=== PATIENT | female | born 1970 | race Caucasian/White ===

== ENCOUNTER 2019-05-29 09:52 | Emergency (ER) | payer OTHER ==
[~2019-05-29] VITALS: Ht 162.6 cm; Wt 86.2 kg
[2019-05-29 10:04] VITALS: BP 175/78
--- NOTE | 2019-05-29 10:08 | NUR ---
pt bib for ward check. pt states she got the indwelling ward 1 week ago d/t possible nueropathy of the bladder. pt states she waiting on a referral to see a bladder specalist to determine if ward still needs to be in or removed. ward is intact and no signs of blood in urine. pt denies any discomfort. denies any n,v,fever, or flank pains. pmh:htn, asthma, mi (2016), kidney fialure, heart disease. nka.
--- NOTE | 2019-05-29 10:09 | NUR ---
lung sounds clear, heart sounds s1s2 present. no resp distress or nay distress noted. no swelling noted.
--- NOTE | 2019-05-29 10:12 | NUR ---
Patient ambulated to bed 1. RN evaluating patient at bedside.
--- NOTE | 2019-05-29 10:49 | NUR ---
ward cath removed per md order. md instructed pt to walk around to stimlulate bladder before d/c
--- NOTE | 2019-05-29 11:14 | NUR ---
Dr. Mccall is re-evaluating the patient at bedside.
--- NOTE | 2019-05-29 11:40 | NUR ---
Patient discharged with v/s stable. Written and verbal after care instructions given and explained. Patient verbalized understanding. Ambulatory with steady gait. All questions addressed prior to discharge. Advised to follow up with PMD.
== END 2019-05-29 11:30 | disposition home or self-care (01) ==
LOC: MED 09:52
DX: R33.9 Retention of urine, unspecified (principal); Z46.6 Encounter for fitting and adjustment of urinary device; J45.909 Unspecified asthma, uncomplicated; I10 Essential (primary) hypertension; Z90.49 Acquired absence of other specified parts of digestive tract; Z98.51 Tubal ligation status; Z95.5 Presence of coronary angioplasty implant and graft
CPT/HCPCS: 99282

== ENCOUNTER 2019-06-07 16:57 | Inpatient (IN) | payer OTHER ==
[~2019-06-07] VITALS: Ht 162.6 cm; Wt 95.3 kg
[2019-06-07 17:07] VITALS: BP 192/98
--- NOTE | 2019-06-07 17:35 | NUR ---
49/F C/O VAGINAL BLEEDING X 2 WEEK GETTING HEAVIER. REPORTS 4 PADS/HR WITH LARGE CLOTS. STATES INT 6/10 SUPRAPUBIC PAIN, DIZZINESS, WEAKNESS, NAUSEA. DENIES FEVER, VOMITING, UTI SYMPTOMS. LMP 05/16/19. GCS15. APPEARS FATIGUED. HX- ANEMIA (2 TRANSFUSIONS), CKD4, CARDIAC STENT, HTN, DM
--- NOTE | 2019-06-07 17:37 | NUR ---
PT STATES UNABLE TO PROVIDE URINE AT THIS TIME. WATER GIVEN TO PT UPON REQUEST.
--- NOTE | 2019-06-07 17:49 | NUR ---
SCHEDULING AGENT AT BEDSIDE.
--- NOTE | 2019-06-07 18:05 | NUR ---
US AT BEDSIDE.
[2019-06-07 18:09] LABS: BASOPHILS % (AUTO) 0.5 % (0.0-2.0); EOSINOPHILS # (AUTO) 0.4 K/uL (0-0.4); EOSINOPHILS % (AUTO) 8.1 % (0.0-4.0); LYMPHOCYTES # (AUTO) 0.9 K/uL (2.5-16.5); LYMPHOCYTES % (AUTO) 18.2 % (20.5-51.1); MEAN CORPUSCULAR HEMOGLOBIN 29 pg (27-31); MEAN CORPUSCULAR HGB CONC 33 g/dL (33-37); MEAN CORPUSCULAR VOLUME 89.8 fL (80-94); MONOCYTES # (AUTO) 0.5 K/uL (0.8-1.0); MONOCYTES % (AUTO) 10.1 % (1.7-9.3); NEUTROPHILS # (AUTO) 3.3 K/uL (1.8-7.7); NEUTROPHILS % (AUTO) 63.1 % (42.2-75.2); PLATELET COUNT (AUTO) 147 K/uL (140-450); RED BLOOD CELL COUNT(AUTO) 2.12 MIL/uL (4.20-5.40); RED CELL DISTRIBUTION WIDTH 14.8 % (11.6-13.7); WHITE BLOOD COUNT (AUTO) 5.2 K/uL (4.8-10.8)
[2019-06-07 18:10] LABS: HEMOGLOBIN 6.2 g/dL (12.0-16.0)
[2019-06-07] MEDS ORDERED: CARV25TA PO (18:40)
[2019-06-07] MEDS ORDERED: DOCU-299 PO (18:40)
[2019-06-07] MEDS ORDERED: FURO-570 PO (18:40)
[2019-06-07] MEDS ORDERED: FERR-252 PO (18:40)
[2019-06-07] MEDS ORDERED: CETI-32 PO (18:40)
[2019-06-07] MEDS ORDERED: SODI650T2 PO (18:40)
[2019-06-07] MEDS ORDERED: ASPI-1718 PO (18:40)
[2019-06-07] MEDS ORDERED: HYDR-1100 PO (18:40)
[2019-06-07] MEDS ORDERED: VITD1000 PO (18:40)
[2019-06-07] MEDS ORDERED: ACET-2619 PO (18:40)
[2019-06-07] MEDS ORDERED: ATOR40TA PO (18:40)
[2019-06-07 18:56] LABS: ALBUMIN 1.9 g/dL (3.4-5.0); ANION GAP 15.6 (8-16); CARBON DIOXIDE 23.8 mmol/L (21-32); POTASSIUM 4.4 mmol/L (3.5-5.1); THYROID STIMULATING HORMONE 3.88 uIU/mL (0.34-3.74); TOTAL BILIRUBIN 0.3 mg/dL (0.0-1.0)
--- NOTE | 2019-06-07 19:20 | NUR ---
Patient will be admitted to care of Dr. Grady. Admited to med surge. Will go to room 104A. Belongings list completed. Report to WALDO Watson.
[2019-06-07 19:23] LABS: CREATININE 5.5 mg/dL (0.6-1.3)
--- NOTE | 2019-06-07 19:37 | NUR ---
RECEIVED FROM ER PER RICO AWAKE AND ALERT. ORIENTED X 4. ROM X 4. CLEAR SPEECH. PT. DX. OF ANEMIA. IVF SITE TO LEFT HAND #20. CARE PLANS FOR THE NIGHT DISCUSSED WITH THEM AND CALL LIGHT USE EXPLAINED AND ENCOURAGED TO USE FOR ANY HELP OR ANY PAIN SHE MIGHT HAVE. PT. DAUGHTER IN HERE ACCOMPANYING PT. SKIN INTACT . /SANDWICH PROVIDED RT VERY HUNGRY PER PT.
[2019-06-07 20:00] VITALS: BP 180/78
--- NOTE | 2019-06-07 20:00 | NUR ---
MD CARRASQUILLO WITH ORDERS PER PHONE. MADE AWARE OF BUN 82 AND CREATININE 5.47 . "OK". NO FURTHER ORDERS RE: THIS VALUES.
--- NOTE | 2019-06-07 20:35 | NUR ---
PT. PRBC TRANSFUSION STARTED AT THIS TIME. NO COMPLAINTS DONE. AWARE OF PROCEDURE. EXPLAINED REASON FOR TRANSFUSION. AWARE. OF IT.
--- NOTE | 2019-06-07 21:00 | NUR ---
MD OSCAR /PROFESSOR OF ASTRONOMY SPECIALIST SEEN PT. AND EXPLAINED TO HER PROCEDURE THE MD WANTS DONE TOMORROW. ALL QUESTIONS RE:DILATATION AND CURETTAGE ANSWERED BY .
[2019-06-07] MEDS ORDERED: FUROSEMIDE 20 MG/2 ML VIAL IVP SCH (22:00)
[2019-06-07] MEDS ORDERED: ACETAMINOPHEN 650 MG/20.3 ML UDC PO PRN (22:35)
--- NOTE | 2019-06-07 23:06 | NUR ---
PT. MEDICATED WITH TYLENOL P.O. REQUESTED FOR HEADACHE/CHRONIC. STATED THAT SHE HAS HEADACHES ALL THE TIME AND TAKES TYLENOL FOR IT.
--- NOTE | 2019-06-07 23:36 | NUR ---
BLOOD TRANSFUSION PRBC ORDERED #1 UNIT DONE AT THIS TIME. NO NOTED SOB. NO URTICARIA. VERBALIZES WELL. CALL LIGHT WITH IN REACH. WAITING FOR THE SECOND UNIT OF PRBC TO ARRIVE ADDED ORDER BY MD OSCAR/ROLAND.
--- NOTE | 2019-06-07 23:49 | NUR ---
PT. REQUESTED FOR MCCRAY CATHETER TO BE INSERTED RT" I AM WEAK TO STAND UP I DON'T WANT BEDPAN" . MD CARRASQUILLO ORDERED "OK TO INSERT MCCRAY CATHETER." PT. HAPPY AND F/C IN PLACE REQUESTED.
[2019-06-08] VITALS: BP 181/83
[2019-06-08] MEDS ORDERED: cloNIDine 0.1 MG TAB ONE (00:31)
[2019-06-08] MEDS: DEXT 5% / NACL 0.45% 1,000 ML IV SCH ×2 (00:32→14:44)
--- NOTE | 2019-06-08 01:13 | NUR ---
PT. SLEEPING AT THIS TIME. CALL LIGHT WITH IN REACH.
--- NOTE | 2019-06-08 02:20 | NUR ---
BLOOD TRANSFUSION #2 OF PRBC NOW INFUSING. PT. AWAKE AND NO COMPLAINTS DONE. MCCRAY CATHETER DRAINING WELL WITH YELLOW URINE. CALL LIGHT WITH IN REACH AT ALL TIMES. IVF SITE NO S/S OF INFILTRATION.
--- NOTE | 2019-06-08 03:03 | NUR ---
NO NOTED ADVERSE REACTIONS TO ON GOING BLOOD TRANSFUSION. SLEEPING WELL. WAKES UP EASILY WHEN TOUCHED OR CALLED BY NAME.
[2019-06-08 03:55] VITALS: BP_SYST 174; BP_SYST 180; BP_DIAS 82; BP_DIAS 84
[2019-06-08] MEDS: cloNIDine 0.1 MG TAB PO PRN ×3 (03:59→23:35)
--- NOTE | 2019-06-08 04:12 | NUR ---
PT. MEDICATED WITH CLONIDINE P.O. ORDERED BY MD CARRASQUILLO FOR SBP ABOVE 170 . PRESENTLY 174/82. SLEEPING WELL. AFEBRILE. WOKE UP EASILY WHEN TOUCHED. NO COMPLAINTS DONE. GOES BACK TO SLEEP EASILY. ABLE TO USE CALL LIGHT FOR HELP.
[2019-06-08] MEDS: hydrALAZINE 25 MG TAB PO SCH ×3 (05:26→17:52)
[2019-06-08] MEDS: CARVEDILOL 12.5 MG TAB PO SCH ×2 (05:27→21:24)
--- NOTE | 2019-06-08 05:32 | NUR ---
PT. BP AT THIS TIME 190/94 AND PULSE AT 72. NO RESTLESSNESS. DENIES ANY PAIN. MEDICATED WITH AM HTN EARLIER . CHARGE NURSE AWARE. TOLERATED WELL. EXPLAINED RESON FOR EARLY MEDICATION. "OK"
--- NOTE | 2019-06-08 05:57 | NUR ---
PT. SLEPT WELL THIS SHIFT. NO COMPLAINTS DONE. HAD 4 FEMALE [employer] [place] WITH ONLY TINGE OF BLOOD SPOTS ON IT. PT. AGREED WITH CALCULATIONS.
--- NOTE | 2019-06-08 06:40 | NUR ---
SBP AT THIS TIME-140/ 72. NO SOB. NO COMPLAINTS OF ANY PAIN AT THIS TIME.
[2019-06-08 06:43] VITALS: BP 140/72
--- NOTE | 2019-06-08 07:15 | NUR ---
RECEIVED BEDSIDE REPORT FROM CUSTOMER SERVICE AGENT NURSE. PT IS AWAKE, IN NO APPARENT ACUTE DISTRESS, ON ROOM AIR, SKIN INTACT. IV SITE IS ON THE L HAND 20 G, CURRENTLY NOT INFUSING ANY FLUID. MCCRAY CATHETER NOTED, DRAINING CLEAR YELLOW URINE. PT NOT C/O PAIN. CALL LIGHT IS WITHIN REACH.
[2019-06-08 08:00] VITALS: BP 158/77
[2019-06-08 08:19] LABS: BASOPHILS % (AUTO) 0.7 % (0.0-2.0); EOSINOPHILS # (AUTO) 0.4 K/uL (0-0.4); EOSINOPHILS % (AUTO) 9.5 % (0.0-4.0); HEMATOCRIT 23.1 % (36-48); HEMOGLOBIN 7.6 g/dL (12.0-16.0); LYMPHOCYTES % (AUTO) 23.4 % (20.5-51.1); MEAN CORPUSCULAR HEMOGLOBIN 29 pg (27-31); MEAN CORPUSCULAR HGB CONC 33 g/dL (33-37); MONOCYTES # (AUTO) 0.5 K/uL (0.8-1.0); MONOCYTES % (AUTO) 11.2 % (1.7-9.3); NEUTROPHILS # (AUTO) 2.3 K/uL (1.8-7.7); NEUTROPHILS % (AUTO) 55.2 % (42.2-75.2); PLATELET COUNT (AUTO) 144 K/uL (140-450); RED CELL DISTRIBUTION WIDTH 14.5 % (11.6-13.7); WHITE BLOOD COUNT (AUTO) 4.2 K/uL (4.8-10.8)
--- NOTE | 2019-06-08 08:37 | NUR ---
PATIENT HAS BEEN SCREENED AND CATEGORIZED MODERATE NUTRITION RISK. PATIENT WILL BE SEEN WITHIN 3-5 DAYS OF ADMISSION. 06/10/19 06/12/[address]
--- NOTE | 2019-06-08 08:43 | NUR ---
PT'S IV INFILTRATED, WILL ATTEMPT TO INSERT A NEW ONE
[2019-06-08 08:49] LABS: ANION GAP 13.4 (8-16); CARBON DIOXIDE 24.8 mmol/L (21-32); POTASSIUM 4.2 mmol/L (3.5-5.1)
[2019-06-08 08:54] LABS: CREATININE 5.4 mg/dL (0.6-1.3)
--- NOTE | 2019-06-08 09:59 | NUR ---
PT WAS SEEN BY DR LIZ REGARDING HER D&C. DR LIZ WANTS TO WAIT UNTIL PT CLEARED BY ADMITTING DOCTOR TO DO THE PROCEDURE DUE TO PT'S COMORBIDITIES. DR LIZ WOULD LIKE TO FIRST SPEAK WITH DR THOMPSON REGARDING THIS. I PROVIDED DR LIZ WITH DR THOMPSON'S PHONE NUMBER. Addendum: 06/08/19 at 1013 by Grisel Bautista RN DR LIZ VERBAL ORDER TO DC MCCRAY CATHETER, REDUCE D5NS DRIP RATE TO 50 ML/HR, RENAL DIET, AND NPO AFTER MIDNIGHT TONIGHT FOR D&C TOMORROW AROUND LUNCH TIME. WILL NOTIFY DR THOMPSON WHEN HE IS ROUNDING.
--- NOTE | 2019-06-08 10:25 | NUR ---
INSERTED NEW IV, R FA 22 G, PATENT AND INTACT.
--- NOTE | 2019-06-08 10:31 | NUR ---
DC PLANNIN49 Y/O FEMALE FROM HOME ADMITTED YESTERDAY DUE TO 2 WEEKS HISTORY OF VAGINAL BLEEDING. PAST MEDICAL HISTORY OF CKD, DM, HEART DISEAS WITH 5 STENTS. WITH DIAGNOSIS OF ANEMIA. H/H 6.2/19.0 ON ADMISSION AND 2 UNITS OF PRBC GIVEN, LATEST H/H 7.6/23.1. OB GYNE CONSULT WITH DR. OSCAR, SCHEDULED FOR D&C TODAY. DC PLAN IS PENDING ON PATIENT'S RESPONSE TO TREATMENT.
--- NOTE | 2019-06-08 10:31 | NUR ---
MCCRAY CATHETER DC'D PER DR OSCAR'S ORDER.
[2019-06-08] MEDS ORDERED: DEXTROSE 50% 50 ML SYR IVP PRN (11:50)
[2019-06-08] MEDS ORDERED: INSULIN LISPRO SLIDING SCALE 100 UNITS/ML VIAL SUBQ PRN (11:50)
[2019-06-08] MEDS: FERROUS SULFATE 325 MG TABEC PO SCH ×2 (12:41→17:53)
--- NOTE | 2019-06-08 14:17 | NUR ---
PCP appointment: KENRICK scheduled hospital follow up appointment with Dr. Vickey Loving for 2:00PM @ 06/15/2019. Appointment slip was left in medical chart to be given at discharge. No further needs identified.
--- NOTE | 2019-06-08 14:50 | NUR ---
It Communications Specialist Note: Basic Screen: Yes High Risk DC Screen Yes Name: ALEXSANDER Escobar Relationship: Pre-Admission Living Arrangements: Lives with Other Prior ADL Independent Current Home Health Name/Tel: N/A Current DME/02 Name/Tel: N/A Current Hospice Name/Tel: N/A Current Dialysis Name/Tel: N/A Healthcare Decision Maker: Patient Advance Directive No - REFUSED Physician Orders for Life Sustaining Treatment Form No Patient/Family Have Educational Needs No Information Taught: Advance Directive Community Resources Person Taught: Patient Teaching Tools: Community Resources Verbal Factors Affecting Learning: None Participation Level: Active Evaluation: Verbalizes Understanding Discipline: Case Mgt/Social Svcs Tentative Discharge Plan/Destination: No Needs Identified Will require assistance post discharge: No Referred to Lens Polisher Hand: No Tentative Discharge Plan Summary: Patient is a 49 year old female admitted for anemia. Patient is admitted from home. Patient has past medical hx of chronic kidney disease, hypertension, diabetes, CAD, and s/p stents. SW verified demographics with patient. Patient stated that her PCP is through [facility]. Patient stated her last appointment was 2 months ago. Patient requested to add emergency contact contact information for daughter Wen Song [phone]. Patient reports mental health history of bipolar disorder, depression, anxiety, and panic attacks. Patient stated she is not medication compliant. SW offered mental health resources and if patient was interested in therapy. KENRICK contacted Sommer from [facility] and scheduled an appointment for 06/13/2019 @ 8:00AM at [address] [place] [address]. Patient reports no substance abuse history. Patient verbalized appreciation. Patient's tentative plan after discharge is to return home. No further needs identified. Signature: PHILLIP Bridges Date: Jun 08, 2019 Time: 14:47
[2019-06-08 16:00] VITALS: BP 196/97
[2019-06-08] MEDS ORDERED: BLOOD GLUCOSE MONITORING 1 DEV DEV FS SCH (16:30)
--- NOTE | 2019-06-08 18:59 | NUR ---
PT'S BP IS 187/83 AT THIS TIME, WILL ADMINISTER PRN CLONIDINE
--- NOTE | 2019-06-08 19:10 | NUR ---
PRN CLONIDINE ADMINISTERED, DIRECTOR OF HOUSING AND ENERGY SERVICES NURSE AWARE AND WILL REASSESS BP.
--- NOTE | 2019-06-08 19:30 | NUR ---
PT ENDORSED TO APPLICATION DBA NURSE IN STABLE CONDITION
--- NOTE | 2019-06-08 19:30 | NUR ---
RECEIVED BEDSIDE REPORT FROM AM SHIFT RN SAMANTHA, FOR PT'S CONTINUITY OF CARE. PT IS AAOX4, FAMILY MEMBER AT BEDSIDE, IS ON ROOM AIR, HAS RIGHT FA 22G WITH D5 1/2 NS AT 50 ML/HR, DENIES ANY PAIN AT THIS TIME. EXPLAINED TO PT THE FORGESMITH ROUTINE, PT AND FAMILY MEMBER VERBALIZED UNDERSTANDING. SAFETY MEASURES IN PLACE. CALL LIGHT IS WITHIN REACH. WILL MONITOR PT THROUGHOUT SHIFT.
--- NOTE | 2019-06-08 21:24 | NUR ---
ADMINISTERED SCHEDULED PO MEDICATION ORDERED. VS REASSESSED AND CHARTED. PT TEACHING GIVEN REGARDING HTN AND MEDICATION. IV SITE INFILTRATED. NEW IV SITE ON LEFT WRIST 22G. WILL CONTINUE TO MONITOR PT.
--- NOTE | 2019-06-08 23:35 | NUR ---
VS CHECKED AND CHARTED. ADMINISTERED PRN BP MEDICATION ORDERED. PT TOLERATED IT WELL. PT TEACHING GIVEN ABOUT MEDICATION AND PRINTED CIRCUIT BOARDS STRIPPER ETCHER MAINTENANCE, PT VERBALIZED UNDERSTANDING. WILL CONTINUE TO MONITOR PT.
--- NOTE | 2019-06-08 23:37 | NUR ---
PT'S VS CHECKED AND CHARTED. BP ABOVE 170. ADMINISTERED PRN PO BP MEDS. WILL REASSESS AT 0105.
[2019-06-09] VITALS (17 sets, daily range): BP systolic 141–195; BP diastolic 76–99
[2019-06-09] MEDS: cloNIDine 0.1 MG TAB PO PRN ×3 (03:51→17:57)
--- NOTE | 2019-06-09 03:51 | NUR ---
VS RECHECKED, BP 185/74. ADMINISTERED PRN BP MEDICATION ORDERED. ASSISTED PT TO THE RESTROOM, PT TOLERATED ACTIVITY WELL. WILL CONTINUE TO MONITOR PT.
--- NOTE | 2019-06-09 05:21 | NUR ---
REASSESSED BP - 193/82. WILL NOTIFY MD FOR THE BP STATUS.
[2019-06-09] MEDS: DEXT 5% / NACL 0.45% 1,000 ML IV SCH ×2 (05:45→18:06)
--- NOTE | 2019-06-09 06:30 | NUR ---
PAGED DR. THOMPSON TO REPORT BP PROGRESS. AWAITING FOR MD'S CALL
--- NOTE | 2019-06-09 06:35 | NUR ---
PT LYING DOWN ASLEEP WITH NO SIGNS OF DISTRESS. WILL ENDORSE TO AM SHIFT RN FOR PT'S CONTINUITY OF CARE.
[2019-06-09 06:39] LABS: BASOPHILS % (AUTO) 0.4 % (0.0-2.0); EOSINOPHILS # (AUTO) 0.4 K/uL (0-0.4); EOSINOPHILS % (AUTO) 8.7 % (0.0-4.0); HEMATOCRIT 22.8 % (36-48); HEMOGLOBIN 7.6 g/dL (12.0-16.0); LYMPHOCYTES # (AUTO) 1.1 K/uL (2.5-16.5); LYMPHOCYTES % (AUTO) 22.9 % (20.5-51.1); MEAN CORPUSCULAR HEMOGLOBIN 30 pg (27-31); MEAN CORPUSCULAR HGB CONC 33 g/dL (33-37); MEAN CORPUSCULAR VOLUME 88.7 fL (80-94); MONOCYTES # (AUTO) 0.5 K/uL (0.8-1.0); MONOCYTES % (AUTO) 9.9 % (1.7-9.3); NEUTROPHILS # (AUTO) 2.8 K/uL (1.8-7.7); NEUTROPHILS % (AUTO) 58.1 % (42.2-75.2); PLATELET COUNT (AUTO) 154 K/uL (140-450); RED BLOOD CELL COUNT(AUTO) 2.58 MIL/uL (4.20-5.40); RED CELL DISTRIBUTION WIDTH 14.7 % (11.6-13.7); WHITE BLOOD COUNT (AUTO) 4.8 K/uL (4.8-10.8)
[2019-06-09 07:23] LABS: ALBUMIN 1.7 g/dL (3.4-5.0); ANION GAP 15.3 (8-16); POTASSIUM 4.3 mmol/L (3.5-5.1); TOTAL BILIRUBIN 0.4 mg/dL (0.0-1.0)
--- NOTE | 2019-06-09 07:25 | NUR ---
RECEIVED BEDSIDE REPORT FROM RESIN MAKER RN FOR PT'S CONTINUITY OF CARE. PT IS AAOX4, ON ROOM AIR, HAS RIGHT FA 22G WITH D5 1/2 NS AT 50 ML/HR, DENIES ANY PAIN AT THIS TIME. PT SKIN IS INTACT. EXPLAINED POC TO PT AND PT VERBALIZED UNDERSTANDING. SAFETY MEASURES IN PLACE. CALL LIGHT IS WITHIN REACH. WILL MONITOR PT THROUGHOUT SHIFT.
[2019-06-09 07:48] LABS: CREATININE 5.6 mg/dL (0.6-1.3)
--- NOTE | 2019-06-09 08:21 | NUR ---
PAGED TO NOTIFY OF PT'S BP BEING 189/82. HR-72. PT ASYMPTOMATIC ANS STABLE. DENIES DISTRESS, PAIN SOB AT THIS TIME. WILL CONTINUE TO ROUND FREQUENTLY ON PT. BED IN LOW POSITION, CALL LIGHT WITHIN REACH. AWAITING 'S CALL BACK.
[2019-06-09] MEDS ORDERED: FUROSEMIDE 40 MG TAB PO SCH ×2 (09:00→12:20)
[2019-06-09] MEDS: FERROUS SULFATE 325 MG TABEC PO SCH ×3 (10:24→16:54)
[2019-06-09] MEDS: hydrALAZINE 25 MG TAB PO SCH ×3 (10:25→16:53)
[2019-06-09] MEDS: CARVEDILOL 12.5 MG TAB PO SCH ×2 (10:25→20:09)
--- NOTE | 2019-06-09 10:31 | NUR ---
ADMINISTERED PT MORNING MEDS. PT TOLERATED WELL. ALL BP MEDS SCHEDULED WERE GIVEN TO PT. PT TOLERATED WELL. WILL BEGIN BLOOD TRANSFUSION WHEN READY. BED IN LOW POSITION, CALL LIGHT WITHIN REACH.
[2019-06-09] MEDS ORDERED: amLODIPine 5 MG TAB PO SCH (11:31)
--- NOTE | 2019-06-09 11:49 | NUR ---
PT BLOOD TRANSFUSION WAS STARTED. PT TOLERATING WELL. MADE PT AWARE OF S/S TO LOOK FOR SUCH RASH, ITCHING, CHILLS, LOWER BACK PAIN, SUDDEN SOB. PT VERBALIZED UNDERSTANDING. WILL STAY WITH PT FOR 30MINS. PT BP STILL ELEVATED AT 181/80 AND HR-72. DR. THOMPSON WALKED IN, SAW PT BP AND AGREED WITH NEW ORDER BY DR. MARTINEZ FOR [facility]. WILL GIVE NEW SCHEDULED BP MEDS TO PT. PT IN STABLE CONDITION AT THIS TIME.
[2019-06-09 11:52] LABS: PROTHROMBIN TIME 10.6 secs (10.8-13.4)
--- NOTE | 2019-06-09 12:35 | NUR ---
PT TAKEN TO OR FOR DNC. PT BLOOD TRANSFUSION RUNNING. NO COMPLAINTS OF NEW SYMPTOMS AT THIS TIME. OR NURSE JENY TO CONTINUE BLOOD TRANSFUSION. PT LEFT IN STABLE CONDITION WITH ELEVATED BP AT 189/81.
[2019-06-09] MEDS ORDERED: LIDOCAINE 2% 100 MG/5 ML SYR IVP ONE (12:58)
[2019-06-09] MEDS ORDERED: SEVOFLURANE 250 ML BTL INH ONE (12:58)
[2019-06-09] MEDS ORDERED: PROPOFOL 200 MG/20 ML VIAL IV ONE (12:58)
[2019-06-09] MEDS ORDERED: MIDAZOLAM 2 MG/2 ML VIAL ONE (13:10)
[2019-06-09] MEDS ORDERED: ONDANSETRON 4 MG/2 ML VIAL IVP PRN (13:30)
[2019-06-09] MEDS ORDERED: BLOOD GLUCOSE MONITORING 1 DEV DEV FS SCH (13:30)
[2019-06-09] MEDS ORDERED: HYDROmorphone 1 MG/ML AMP IVP PRN (13:30)
[2019-06-09] MEDS: LABETALOL 100 MG/20 ML VIAL ONE ×2 (14:02→14:23)
[2019-06-09] MEDS ORDERED: LABETALOL 100 MG/20 ML VIAL IV ONE (14:02)
--- NOTE | 2019-06-09 15:17 | NUR ---
RECEIVED FROM ER IN BED . PT IS AWAKE AND ALERT FOLLOW THE COMMAND. SHE IS ON ROOM AIR SKIN DRY ,COOL TO TOUCH, COLOR PALE. HAS GENERALIZE EDEMA 1 +.LEFT ARM EDEMA . IV FLUID ON RT WRIST INFUSING NS AT 10ML/HR. HER PERINEAL PAD SHOW NO BLEEDING AT THE TIME.
[2019-06-09] MEDS ORDERED: LABETALOL 100 MG/20 ML VIAL IV SCH (15:50)
--- NOTE | 2019-06-09 16:00 | NUR ---
RECEIVED REPORT FROM WALDO ARRIAGA AND OR NURSES. PT ALERT AND ORIENTED X4. ABLE TO MAKE NEEDS KNOWN. IN ROOM AIR SPO2 92%. NO SOB OR ACUTE RESPIRATORY DISTRESS NOTED. BP NOTED WAS 176/93. PT DENIES ANY HEADACHE, DIZZINESS OR PAIN. DENIES ANY NAUSEA OR VOMITING. LUNGS SOUND CLEAR. PERIPHERAL LINE NOTED ON RIGHT WRIST 20 G. IV SITE INTACT. FLUSHED. NS RUNNING AT 10 ML/HR. 20 PERIPHERAL LINE NOTED ON LEFT WRIST. SITE SWOLLEN NOTED. PT C/O PAIN ON THE IV SITE. REMOVED IV CANNULA FROM LEFT WRIST. COVERED WITH DRESSING. KEPT ARM ELEVATED, ICE PACK APPLIED TO THE SITE. ABDOMEN SOFT ROUND AND NON-TENDER. ACTIVE BOWEL SOUND. NO ACTIVE VAGINAL BLEEDING NOTED AT THIS TIME. EDEMATOUS B/L LOWER EXTREMITIES. SKIN DRY AND WARM TO TOUCH, INTACT. HOB ELEVATED. BED IN LOW POSITION LOCKED. WILL CONTINUE TO MONITOR.
--- NOTE | 2019-06-09 16:12 | NUR ---
PT TAKEN TO ICU AFTER DNC DUE TO PERSISTENT HTN. REPORT GIVEN TO MACY FOR CONTINUITY OF CARE.
--- NOTE | 2019-06-09 16:40 | NUR ---
PAGED AND RECEIVED CALL FROM DR. OSCAR. F/U MADE REGARDING PT'S DIET. PER DR. OSCAR, PT CAN HAVE CLEAR LIQUID DIET FOR NOW AND ADVANCED TO RENAL DIET LATER. PER DR. OSCAR, FOR OTHER CONCERN CALL DR. THOMPSON. WILL CARRYOUT ORDER.
--- NOTE | 2019-06-09 17:01 | NUR ---
PT ABLE TO TAKE SOME ICE CHIPS AND SIPS OF WATER. BP 157/91 AT THIS TIME. HYDRALAZINE ADMINISTERED PER SCHEDULE. WILL CONTINUE TO MONITOR BP.
--- NOTE | 2019-06-09 17:05 | NUR ---
CALL DR. MARTINEZ PHONE #[phone]. SPOKE TO WALDO BOLES. LEFT MESSAGE FOR DR. MARTINEZ. MELI SAID HE WILL RELAY THE MESSAGE TO DR. MARTINEZ AND HAVE HIM CALL US.
--- NOTE | 2019-06-09 17:26 | NUR ---
LAB AT THE BEDSIDE.
[2019-06-09 17:32] LABS: BASOPHILS % (AUTO) 0.7 % (0.0-2.0); EOSINOPHILS # (AUTO) 0.4 K/uL (0-0.4); EOSINOPHILS % (AUTO) 8.3 % (0.0-4.0); HEMATOCRIT 31.3 % (36-48); HEMOGLOBIN 10.3 g/dL (12.0-16.0); LYMPHOCYTES # (AUTO) 0.9 K/uL (2.5-16.5); LYMPHOCYTES % (AUTO) 17.6 % (20.5-51.1); MEAN CORPUSCULAR HEMOGLOBIN 30 pg (27-31); MEAN CORPUSCULAR HGB CONC 33 g/dL (33-37); MEAN CORPUSCULAR VOLUME 89.6 fL (80-94); MONOCYTES # (AUTO) 0.4 K/uL (0.8-1.0); MONOCYTES % (AUTO) 8.4 % (1.7-9.3); NEUTROPHILS # (AUTO) 3.5 K/uL (1.8-7.7); PLATELET COUNT (AUTO) 159 K/uL (140-450); RED BLOOD CELL COUNT(AUTO) 3.49 MIL/uL (4.20-5.40); RED CELL DISTRIBUTION WIDTH 14.3 % (11.6-13.7); WHITE BLOOD COUNT (AUTO) 5.3 K/uL (4.8-10.8)
--- NOTE | 2019-06-09 17:34 | NUR ---
PAGEVimal AND RECEIVED CALL FROM DR. THOMPSON. UPDATED PT STATUS. MADE AWARE OF BP, IVF STATUS AND DIET. DR. THOMPSON SAID DC NS AND CONTINUE PREVIOUS IVF D5% 0.45% NS AT 50 ML/HR. FOLLOW HUMALOG SLIDING SCALE PER PROTOCOL AND CONTINUE LIQUID DIET, WILL START DIABETIC DIET FROM TOMORROW. DR. THOMPSON ALSO ORDERED IMDUR 30 MG PO DAILY, FIRST DOSE FOR NOW AND METOPROLOL 5 MG IVP Q6HR PRN. WILL CARRY OUT ORDER. PER DR. THOMPSON, PT CAN BE TRANSFERRED TO TELEMETRY UNIT.
--- NOTE | 2019-06-09 17:44 | NUR ---
PAGED AND RECEIVED CALL FROM DR. MARTINEZ. MADE AWARE OF PT STATUS, BP AND ANTIHYPERTENSIVE MEDS ADD BY DR. THOMPSON. PER DR. MARTINEZ FOLLOW DR. JARQUIN ORDER. NO NEED OF ANY ANTIHYPERTENSIVE DRIP FOR NOW PER DR. MARTINEZ.
[2019-06-09] MEDS ORDERED: METOPROLOL 5 MG/5 ML VIAL IV PRN (17:50)
[2019-06-09] MEDS ORDERED: INSULIN LISPRO SLIDING SCALE 100 UNITS/ML VIAL SUBQ PRN (17:50)
[2019-06-09] MEDS ORDERED: ISOSORBIDE MONONITRATE 30 MG TABER PO SCH (17:56)
--- NOTE | 2019-06-09 19:10 | NUR ---
PT TRANSFERRED TO TELE UNIT ROOM 107B VIA BED ON STABLE CONDITION. BELONGINGS TAKEN WITH PT. REPORT GIVEN TO WALDO SCHMIDT.
--- NOTE | 2019-06-09 19:11 | NUR ---
Received endorsement from CURTAIN FELLER BLINDSTITCH; patient A/Ox4, able to make needs known, Indonesian speaking, on bedrest. Introduced self, updated board. No SOB or distress noted, on room air. IV site noted on right wrist, 20 gauge, running D5 NS 1/2 at 50mL/hr. Patient s/p dilatation and curettage. Bed in the lowest position, call light within reach. Initial assessment done. Will continue to monitor. Addendum: 06/09/19 at 2201 by Mati Paiz RN Vitals upon admission into the unit are as follows: BP 141/87, HR 75 RR 16, Temp 97.9, O2Sat 97% on room air.
--- NOTE | 2019-06-09 20:16 | NUR ---
Dr. Salazar went to see patient; ordered Depo-Provera daily. Carried out.
--- NOTE | 2019-06-09 20:40 | NUR ---
Patient complained of urinary retention; bladder scan was done, patient retaining 466mL of urine. Dr. Oreilly made aware; ordered straight catheter PRN every 6 hours as needed. Order carried out.
--- NOTE | 2019-06-09 21:30 | NUR ---
Due meds given, tolerated well.
--- NOTE | 2019-06-09 23:30 | NUR ---
Vitals taken, no distress noted.
[2019-06-10] VITALS: BP 159/79
--- NOTE | 2019-06-10 01:20 | NUR ---
Checks made; patient asleep, eyes closed, visible chest rise and fall noted. Addendum: 06/10/19 at 0202 by Mati Paiz RN Correct time is 0133, not 0120.
[2019-06-10 04:00] VITALS: BP 164/71
--- NOTE | 2019-06-10 04:05 | NUR ---
Vitals taken, no distress noted. Patient resting comfortably, visible chest rise and fall noted.
--- NOTE | 2019-06-10 06:05 | NUR ---
Vitals stable, due meds given. Will endorse to AM shift RN for continuity of care.
--- NOTE | 2019-06-10 07:10 | NUR ---
RECEIVED BEDSIDE REPORT FROM PLAYGROUND DIRECTOR NURSE, PT IS AWAKE AND ALERT SITTING UP IN BED, NO S/S OF ACUTE DISTRESS, NO SOB. PT IS ON ROOM AIR, SKIN INTACT. IV SITE R WRIST 20 G INFUSING D5 1/2NS 50 ML/HR. BLE PITTING EDEMA +2, AND ANASARCA NOTED. PT'S RELATIVE IS VISITING AT BEDSIDE. FALL PRECAUTIONS IN PLACE. CALL LIGHT WITHIN REACH.
[2019-06-10 07:19] LABS: BASOPHILS % (AUTO) 0.3 % (0.0-2.0); EOSINOPHILS # (AUTO) 0.5 K/uL (0-0.4); EOSINOPHILS % (AUTO) 7.1 % (0.0-4.0); HEMATOCRIT 30.4 % (36-48); HEMOGLOBIN 10.1 g/dL (12.0-16.0); LYMPHOCYTES # (AUTO) 0.9 K/uL (2.5-16.5); LYMPHOCYTES % (AUTO) 12.9 % (20.5-51.1); MEAN CORPUSCULAR HEMOGLOBIN 30 pg (27-31); MEAN CORPUSCULAR HGB CONC 33 g/dL (33-37); MEAN CORPUSCULAR VOLUME 88.6 fL (80-94); MONOCYTES # (AUTO) 0.5 K/uL (0.8-1.0); MONOCYTES % (AUTO) 7.3 % (1.7-9.3); NEUTROPHILS # (AUTO) 5.2 K/uL (1.8-7.7); NEUTROPHILS % (AUTO) 72.4 % (42.2-75.2); PLATELET COUNT (AUTO) 167 K/uL (140-450); RED BLOOD CELL COUNT(AUTO) 3.43 MIL/uL (4.20-5.40); RED CELL DISTRIBUTION WIDTH 14.5 % (11.6-13.7); WHITE BLOOD COUNT (AUTO) 7.1 K/uL (4.8-10.8)
[2019-06-10 07:22] LABS: ALBUMIN 1.7 g/dL (3.4-5.0); CARBON DIOXIDE 24.2 mmol/L (21-32); POTASSIUM 4.2 mmol/L (3.5-5.1); TOTAL BILIRUBIN 0.5 mg/dL (0.0-1.0)
[2019-06-10 07:30] LABS: CREATININE 5.4 mg/dL (0.6-1.3)
[2019-06-10 08:00] VITALS: BP 185/83
[2019-06-10] MEDS: hydrALAZINE 25 MG TAB PO SCH ×2 (08:48→12:05)
[2019-06-10] MEDS: CARVEDILOL 12.5 MG TAB PO SCH (08:50)
[2019-06-10] MEDS: FERROUS SULFATE 325 MG TABEC PO SCH ×2 (08:51→11:04)
--- NOTE | 2019-06-10 08:58 | NUR ---
ADMINISTERED SCHEDULED AM MEDS, PT TOLERATED WELL.
[2019-06-10] MEDS ORDERED: FUROSEMIDE 40 MG TAB PO SCH (09:00)
[2019-06-10] MEDS ORDERED: amLODIPine 5 MG TAB PO SCH (09:00)
[2019-06-10] MEDS ORDERED: ISOSORBIDE MONONITRATE 30 MG TABER PO SCH (09:00)
--- NOTE | 2019-06-10 10:15 | NUR ---
PT WAS ENDORSED TO WALDO DELGADO, FOR CONTINUITY OF CARE.
--- NOTE | 2019-06-10 10:16 | NUR ---
REPORT RECEIVED FROM SAMANTHA RN, PT RESTING QUIETLY IN NO ACUTE DISTRESS, OX4, RESP EVEN UNLABORED, SKIN WARM DRY COLOR WNL, PT UP TO BATHROOM WITH STEADY GAIT, DENIES DIZZINESS, LIGHTHEADED, STATES VOIDING WITHOUT PROBLEM, PT NOW WALKING AROUND THE HALLWAY WILL CONTINUE TO MONTIOR.
[2019-06-10 10:20] VITALS: BP 163/80
--- NOTE | 2019-06-10 10:33 | NUR ---
DR LE AT BEDSIDE.
--- NOTE | 2019-06-10 10:35 | NUR ---
REPEAT BP 163/80, HR 73
[2019-06-10] MEDS ORDERED: AMLO10TA4 PO (10:36)
[2019-06-10] MEDS ORDERED: BISACODYL 10 MG SUPP RC SCH (11:00)
--- NOTE | 2019-06-10 11:25 | NUR ---
PT REPORTS SHE JUST HAD LARGE LOOSE BM, DULCOLAX HELD.
--- NOTE | 2019-06-10 13:00 | NUR ---
CALLED DR LE TO CLARIFY ASPIRIN, PT TO HOLD ASPIRIN FOR ONE WEEK AND RESUME AGAIN, AND START AMLODIPINE TODAY, PT VERBALIZED UNDERSTANDING.
--- NOTE | 2019-06-10 13:10 | NUR ---
IV DC'D, CATH TIP INTACT, BLEEDING CONTROLLED, DC INSTRUCTIONS GIVEN AND EXPLAINED TO PT, APPOINTMENT SLIP AND RX GIVEN TO PT, PT VERBALIZED FULL UNDERSTANDING, PT UP AMBULATING WELL WITH STEADY GAIT, DC HOME NOW WITH FAMILY
== END 2019-06-10 13:10 | disposition home or self-care (01) | DRG 517 ==
LOC: MED 16:57 → MTU 18:30 → MLD 06-09 15:44 → MIC 06-09 15:47 → MTU 06-09 19:04
PROVIDERS: ADMIT Internal Medicine Pulmonary Disease; ATTEND Internal Medicine Pulmonary Disease
PROC: 30233N1 Transfusion of Nonautologous Red Blood Cells into Peripheral Vein, Percutaneous Approach (ICD-10-PCS; principal; 2019-06-07)
PROC: 0UDB7ZZ Extraction of Endometrium, Via Natural or Artificial Opening (ICD-10-PCS; 2019-06-09)
DX: N92.0 Excessive and frequent menstruation with regular cycle (principal); E43 Unspecified severe protein-calorie malnutrition; N18.6 End stage renal disease; I12.0 Hypertensive chronic kidney disease with stage 5 chronic kidney disease or end stage renal disease; E11.22 Type 2 diabetes mellitus with diabetic chronic kidney disease; D62 Acute posthemorrhagic anemia; J45.909 Unspecified asthma, uncomplicated; I25.10 Atherosclerotic heart disease of native coronary artery without angina pectoris; D25.9 Leiomyoma of uterus, unspecified; N83.209 Unspecified ovarian cyst, unspecified side; N93.9 Abnormal uterine and vaginal bleeding, unspecified; I25.2 Old myocardial infarction; N81.4 Uterovaginal prolapse, unspecified; E66.9 Obesity, unspecified; Z95.5 Presence of coronary angioplasty implant and graft; Z79.82 Long term (current) use of aspirin; Z79.899 Other long term (current) drug therapy; Z90.49 Acquired absence of other specified parts of digestive tract; Z95.1 Presence of aortocoronary bypass graft; Z98.51 Tubal ligation status; Z68.36 Body mass index [BMI] 36.0-36.9, adult
CPT/HCPCS: 36415; 36430; 71045; 76830; 80048; 80053; 82948; 84443; 84484; 85025; 85610; 86886; 86900; 86901; 86920; 87081; 88305; 93005; 99285; C1758; J1050; J1940; J2001; J2250; J2704; J3490; J7030; J7120; P9016; Q0092

== ENCOUNTER 2019-07-15 19:06 | Inpatient (IN) | payer OTHER ==
[~2019-07-15] VITALS: Ht 162.6 cm; Wt 93.4 kg
[~2019-07-15 19:06] MED LIST: ACET-2619 PO; AMLO10TA4 PO; ATOR40TA PO; CARV25TA PO; CETI-32 PO; DOCU-299 PO; FERR-252 PO; FURO-570 PO; HYDR-1100 PO; SODI650T2 PO; VITD1000 PO
[2019-07-15 19:19] VITALS: BP 184/82
--- NOTE | 2019-07-15 19:29 | NUR ---
49 Y/O FEMALE C/O SOB X 2HR. LUNG SOUNDS CLEAR ALL THROUGHOUT. PRODUCTIVE COUGH PRESENT. SPO2 100% WITH 2L NC. PT STATES SHE HAS ABD PAIN AND BACK PAIN AND RATES IT 10/10. HEART SOUND S1S2 PRESENT. PITTING EDEMA +3 PRESENT BILAT LOWER EXTREM. VSS. NO SOB PRESENT. NO USE OF ACCESSORY MUSCLE. A & O X4. NKA. PMH: PD DIALYSIS, DM, HTN, ASTHMA, RENAL FAILURE, HEART MURMUR.
--- NOTE | 2019-07-15 19:29 | NUR ---
WHEELCHAIRED TO BED #1
--- NOTE | 2019-07-15 19:29 | NUR ---
ABD IS SOFT, ROUND, ACTIVE BS. PD DIALYSIS ACCESS PORT FOUND ON LUQ.
[2019-07-15] MEDS ORDERED: LEVOFLOXACIN 750 MG/D5W PREMIX 150 ML IV ONE (19:40)
[2019-07-15] MEDS ORDERED: NACL 0.9% 1,000 ML IV ONE (19:40)
[2019-07-15] MEDS ORDERED: ALBUTEROL SULFATE/IPRATROPIU 3 ML SOL IH ONE (19:45)
--- NOTE | 2019-07-15 19:48 | NUR ---
XR AT BEDSIDE.
[2019-07-15] MEDS ORDERED: cefTRIAXone 1,000 MG VIAL ONE (20:06)
[2019-07-15 20:37] LABS: BASOPHILS # (AUTO) 0.1 K/uL (0.00-0.22); BASOPHILS % (AUTO) 1.3 % (0.0-2.0); EOSINOPHILS # (AUTO) 0.3 K/uL (0-0.4); EOSINOPHILS % (AUTO) 3.9 % (0.0-4.0); HEMATOCRIT 27.2 % (36-48); HEMOGLOBIN 8.8 g/dL (12.0-16.0); LYMPHOCYTES # (AUTO) 0.7 K/uL (2.5-16.5); LYMPHOCYTES % (AUTO) 8.6 % (20.5-51.1); MEAN CORPUSCULAR HEMOGLOBIN 29 pg (27-31); MEAN CORPUSCULAR HGB CONC 32 g/dL (33-37); MEAN CORPUSCULAR VOLUME 89.7 fL (80-94); MONOCYTES # (AUTO) 0.4 K/uL (0.8-1.0); MONOCYTES % (AUTO) 4.9 % (1.7-9.3); NEUTROPHILS # (AUTO) 6.7 K/uL (1.8-7.7); NEUTROPHILS % (AUTO) 81.3 % (42.2-75.2); PLATELET COUNT (AUTO) 176 K/uL (140-450); RED BLOOD CELL COUNT(AUTO) 3.03 MIL/uL (4.20-5.40); RED CELL DISTRIBUTION WIDTH 13.8 % (11.6-13.7); WHITE BLOOD COUNT (AUTO) 8.3 K/uL (4.8-10.8)
--- NOTE | 2019-07-15 20:41 | NUR ---
EKG PERFORMED AT BEDSIDE WITH FAMILY MEMBER PRESENT
[2019-07-15 20:59] LABS: ALBUMIN 2.1 g/dL (3.4-5.0); ANION GAP 17.6 (8-16); CARBON DIOXIDE 21.7 mmol/L (21-32); POTASSIUM 4.3 mmol/L (3.5-5.1); TOTAL BILIRUBIN 0.3 mg/dL (0.0-1.0)
[2019-07-15 21:01] LABS: CREATININE 6.4 mg/dL (0.6-1.3)
[2019-07-15] MEDS ORDERED: ACETAMINOPHEN EXTRA STRENGTH 500 MG TAB ONE (21:43)
[2019-07-15] MEDS ORDERED: INSULIN LISPRO SLIDING SCALE 100 UNITS/ML VIAL SUBQ PRN (21:55)
[2019-07-15] MEDS ORDERED: DEXTROSE 50% 50 ML SYR IVP PRN (21:55)
--- NOTE | 2019-07-15 22:03 | NUR ---
400ML URINE VIA STRAIGHT CATH.
--- NOTE | 2019-07-15 22:13 | NUR ---
STRAIGHT CATH PT AND GOT 400CC OF CLEAR YELLOW URINE.
[2019-07-15] MEDS ORDERED: ATOR40TA PO (22:25)
[2019-07-15] MEDS ORDERED: FLONAS NS (22:36)
[2019-07-15] MEDS ORDERED: ACET-8386 PO (22:38)
[2019-07-15] MEDS ORDERED: ONDA4ODT2 PO (22:44)
[2019-07-15 22:48] LABS: APPEARANCE,URINE CLEAR (CLEAR); BILIRUBIN,URINE NEGATIVE (NEGATIVE); BLOOD, URINE 1+ (NEGATIVE); COLOR,URINE YELLOW (YELLOW); LEUKOCYTE ESTERASE ,URINE NEGATIVE (NEGATIVE); NITRITE, URINE NEGATIVE (NEGATIVE); UGLUCOSE 1+ (NEGATIVE)
[2019-07-15] MEDS ORDERED: IMO2 PO (22:48)
[2019-07-15] MEDS ORDERED: AMLO5TAB PO (22:49)
[2019-07-15] MEDS ORDERED: [UNRECOGNIZED DRUG - CODE] PO (22:50)
[2019-07-15] MEDS ORDERED: ROC.25 PO (22:51)
[2019-07-15] MEDS ORDERED: HYDR-4421 PO (22:53)
[2019-07-15] MEDS ORDERED: FISH10005 PO (22:55)
[2019-07-15] MEDS ORDERED: MELA5TAB6 PO (22:55)
[2019-07-15 22:58] LABS: WBC,URINE 0-5 /HPF (0-5)
--- NOTE | 2019-07-15 23:09 | NUR ---
Admited to TELE 119-B Belongings list completed. Report to WALDO LUKE .
--- NOTE | 2019-07-15 23:11 | NUR ---
RECEIVED PT. FROM ER PER RICO AWAKE AND ALERT. DX. OF PNA. NO SOB AT THIS TIME. ON 02 AT 2LPM/NC. ABLE TO COMMUNICATE WELL IN [place] . IVF SITE INTACT AND WITH GOOD BLOOD RETURN. CARE PLANS FOR THE NIGHT DISCUSSED WITH HER AND CALL LIGHT WITH IN REACH. AFEBRILE.
[2019-07-15 23:43] VITALS: BP 175/80
--- NOTE | 2019-07-16 01:10 | NUR ---
SLEEPING AT THIS TIME. PROVIDED WITH SNACK PRIOR GOING TO SLEEP REQUESTED . CALL LIGHT WITH IN REACH.
--- NOTE | 2019-07-16 02:45 | NUR ---
ASSISTED PT. TO RESTROOM AND CHANGED DRESSING OF PERITONEAL DIALYSIS ACCESS IN ABDOMEN. PT. INFORMED HER THAT I WAS ABLE TO TALK TO FIRE CONTROL OFFICER MD [place] TO RE-CONFIRM HEM MARKER CONSULT HE ORDERED. CHARGE NURSE TALKED TO HIM AND RE-CONFIRMED MD HE WANTS FOR CONSULT IS FITZ SNOW. WILL ENDORSE TO AM RN FOR CONTINUITY OF CARE AND FOLLOW UP WITH FITZ NEWMAN.
--- NOTE | 2019-07-16 03:00 | NUR ---
SLEEPING. WAKES UP EASILY WHEN CALLED BY NAME. STATED SHE CAN NOT SLEEP WELL. ENCOURAGED TO RELAX RT PT. NEW DIALYSIS PT.
[2019-07-16 04:00] VITALS: BP 157/75
--- NOTE | 2019-07-16 05:00 | NUR ---
AWAKE . AMBULATED TO RESTROOM AND BALLISTICS EXPERT STANDBY ASSIST. ABLE TO USE CALL LIGHT FOR HELP. A/O X 4. ROM X 4.
--- NOTE | 2019-07-16 07:25 | NUR ---
REPORT RECEIVED FROM REFINERY SUPERINTENDENT NURSE FOR CONTINUITY OF CARE, PD SITE CHECK SCANT LEAKAGE NOTED, SEROUS FLUID. CONSULT FOR CATERING SERVER ORDERED BY MD. PATIENT STATES MILD NAUSEA, PATIENT IN BED, HEP LOCK IV. BED IN LOW POSITION, CALL LIGHT ON AND WITHIN REACH, WILL CONTINUE TO MONITOR.
[2019-07-16] MEDS: BLOOD GLUCOSE MONITORING 1 DEV DEV FS SCH ×4 (07:30→21:00)
--- NOTE | 2019-07-16 07:33 | NUR ---
ENDORSED TO THE AM RN FOR CONTINUITY OF CARE. AWAKE AND ALERT. NO SOB. NO C/O PAIN THIS SHIFT. BLOOD SUGAR WNL FOR THIS A.M. TELEMETRY MONITORING.
[2019-07-16 08:00] VITALS: BP 170/79
[2019-07-16] MEDS ORDERED: INFLUENZA VACCINE QUAD 0.5 ML SYR IMVAC PRN (09:00)
[2019-07-16] MEDS ORDERED: PNEUMOCOCCAL VACCINE 23 MCG/0.5 ML VIAL IMVAC SCH (09:00)
--- NOTE | 2019-07-16 09:00 | NUR ---
PAGE SENT TO DR. POE TO RECONCILE HOME MEDS, PATIENT HAS NO MEDS ORDERED AT THIS TIME AND HAS SCHEDULED BP MEDS DUE IN MORNING PER PATIENTS HOME MED RECONCILIATION.
--- NOTE | 2019-07-16 09:45 | NUR ---
RECEIVED CALL FROM DR. POE TO CONTINUE HOME MEDS, MEDICATION ORDER PLACED. PATIENT COMPLAINING OF LEAKAGE AT PERITONEAL DIALYSIS SITE. DRESSING IS DAMP. WILL CONTINUE TO MONITOR.
[2019-07-16] MEDS ORDERED: ONDANSETRON 4 MG ODT PO PRN (10:05)
[2019-07-16] MEDS ORDERED: LOPERAMIDE 2 MG CAP PO PRN (10:05)
[2019-07-16] MEDS ORDERED: HYDROcodone/APAP 5/325 MG 1 TAB TAB PO SCH (10:05)
[2019-07-16] MEDS ORDERED: ACETAMINOPHEN 325 MG TAB PO PRN (10:05)
[2019-07-16 12:00] VITALS: BP 175/79
[2019-07-16 12:18] LABS: BASOPHILS % (AUTO) 0.4 % (0.0-2.0); EOSINOPHILS # (AUTO) 0.1 K/uL (0-0.4); EOSINOPHILS % (AUTO) 2.8 % (0.0-4.0); LYMPHOCYTES # (AUTO) 0.5 K/uL (2.5-16.5); LYMPHOCYTES % (AUTO) 9.9 % (20.5-51.1); MEAN CORPUSCULAR HEMOGLOBIN 30 pg (27-31); MEAN CORPUSCULAR HGB CONC 33 g/dL (33-37); MEAN CORPUSCULAR VOLUME 88.7 fL (80-94); MONOCYTES # (AUTO) 0.5 K/uL (0.8-1.0); MONOCYTES % (AUTO) 10.5 % (1.7-9.3); NEUTROPHILS # (AUTO) 3.7 K/uL (1.8-7.7); NEUTROPHILS % (AUTO) 76.4 % (42.2-75.2); PLATELET COUNT (AUTO) 129 K/uL (140-450); RED BLOOD CELL COUNT(AUTO) 2.71 MIL/uL (4.20-5.40); RED CELL DISTRIBUTION WIDTH 13.6 % (11.6-13.7); WHITE BLOOD COUNT (AUTO) 4.9 K/uL (4.8-10.8)
[2019-07-16 12:41] LABS: ANION GAP 16.6 (8-16); CARBON DIOXIDE 20.4 mmol/L (21-32)
--- NOTE | 2019-07-16 12:53 | NUR ---
RECEIVED CALL FROM PHARMACY REGARDING CRITICAL LAB VALUES, REPORTED TO DR. POE. BUN:75, CREATININE:6.3
[2019-07-16 12:57] LABS: CREATININE 6.3 mg/dL (0.6-1.3)
[2019-07-16] MEDS: SODIUM BICARBONATE 650 MG TAB PO SCH ×2 (13:00→17:36)
[2019-07-16] MEDS ORDERED: hydrALAZINE 20 MG/ML VIAL IVP PRN (13:05)
[2019-07-16] MEDS ORDERED: ALBUTEROL SULFATE/IPRATROPIU 3 ML SOL IH PRN (13:30)
--- NOTE | 2019-07-16 13:52 | NUR ---
Disease Case Manager Note: Basic Screen: Yes High Risk DC Screen [place]: ARLET SONG Home Relationship: DAUGHTER Pre-Admission Living Arrangements: Lives with Other Other: LIVES WITH DAUGHTERS Prior ADL Independent Current Home Health Name/Tel: N/A Current DME/02 Name/Tel: N/A Current Hospice Name/Tel: N/A Current Dialysis Name/Tel: [facility] Healthcare Decision Maker: Patient Advance Directive No - REFUSED Patient/Family Have Educational Needs No Information Taught: Advance Directive Person Taught: Patient Teaching Tools: Verbal Factors Affecting Learning: None Participation Level: Refused Evaluation: Verbalizes Understanding Needs Additional Education: No Discipline: Case Mgt/Social Svcs Tentative Discharge Plan/Destination: No Needs Identified Will require assistance post discharge: No Referred to Packaging Designer: No Tentative Discharge Plan Summary: Patient is a 49-year-old female admitted for right lobe pneumonia. Patient has PMHX of chronic renal failure from diabetic nephropathy, hypertension, 4 heart stents, and asthma. Patient was admitted from home. SW met patient at bedside to verify demographics. Patient requested to change emergency contact from Aldo Soto [phone] to daughter Arlet Song [phone]. Patient reports mental health history of bipolar disorder and anxiety. Patient stated she discontinued seeing her psychiatrist since her insurance has changed and intends to see an in-network psychiatrist. SW offered mental health resources but patient refused. SW provided education on advanced directive, but patient also refused. Patient's tentative discharge plan is to return home. No further needs identified. Signature: PHILLIP Bridges Date: Jul 16, 2019 Time: 13:52
--- NOTE | 2019-07-16 14:13 | NUR ---
PT INSTRUCTED ON SPUTUM SAMPLE CUP AT BEDSIDE
--- NOTE | 2019-07-16 15:30 | NUR ---
PATIENT IS RESTING IN BED, [facility] NURSE TO COME LATER TONIGHT FOR PERITONEAL DIALYSIS. MEDICATIONS ADMINISTERED FOR PAIN. PATIENT COMPLAINS OF GENERALIZED DISCOMFORT AND FRUSTRATION WITH NOT HAVING MEDICATIONS. BED IN LOW POSITION. WILL CONTINUE TO MONITOR.
[2019-07-16 16:00] VITALS: BP 156/75
[2019-07-16] MEDS: hydrALAZINE 25 MG TAB PO SCH (17:36)
--- NOTE | 2019-07-16 18:00 | NUR ---
PATIENT IS RESTING IN BED, [facility] NURSE CAME BY AND STATED THAT SHE IS NOT GOING TO PERFORM PERITONEAL DIALYSIS DUE TO RECENTLY CREATED PERITONEAL DIALYSIS, BUT STATED THAT COLLAR WORKER DOCTOR WILL BE COMING TONIGHT.
[2019-07-16] MEDS: BUDESONIDE 0.5 MG/2 ML NEBU INH SCH (19:19)
[2019-07-16] MEDS: ALBUTEROL SULFATE/IPRATROPIU 3 ML SOL IH SCH (19:19)
--- NOTE | 2019-07-16 19:34 | NUR ---
RECEIVED PATIENT ON ROOM AIR, PULSE OX SAT 94%. SCHEDULED BREATHING TREATMENTS ADMINISTERED. TOLERATED TX WELL WITHOUT ADVERSE SIDE EFFECTS. PER MD, PLACE PATIENT ON OXYGEN TO AVOID OVER-EXERTION. PLACED ON 2L NC. NO ACUTE RESPIRATORY DISTRESS NOTED AT THIS TIME. WILL CONTINUE TO MONITOR.
[2019-07-16] MEDS ORDERED: FUROSEMIDE 100 MG/10 ML VIAL ONE ×2 (19:39→19:40)
[2019-07-16 19:45] VITALS: BP 190/89
--- NOTE | 2019-07-16 20:01 | NUR ---
MD VERDUGO TRACK MAINTAINER IN HERE TO SEE PT. AND WITH NEW ORDERS TO INSERT MCCRAY CATHETER AND LASIX IVP 60 MG STAT. PT. ABLE TO VERBALIZE NEEDS WELL. NO SOB RT WITH 02 AT 2 LPM/NC IN PLACE PER MD VERDUGO. CALL LIGHT WITH IN REACH. TELEMETRY MONITORING. ENCOURAGED TO CALL FOR ANY HELP SHE MAY NEED. CARE PLANS FOR THE NIGHT DISCUSSED WITH HER. MCCRAY CATHETER INSERTED BY CHARGE NURSE WITH POSITIVE URINE OUT FLOW TO MCCRAY CATHETER BAG.
[2019-07-16] MEDS: CARVEDILOL 12.5 MG TAB PO SCH (20:17)
[2019-07-16] MEDS ORDERED: FUROSEMIDE 40 MG TAB PO SCH (21:00)
[2019-07-16] MEDS ORDERED: ATORVASTATIN 20 MG TAB PO SCH (21:00)
[2019-07-16] MEDS ORDERED: MELATONIN 3 MG TAB PO SCH (21:00)
[2019-07-17] VITALS: BP 168/80
[2019-07-17] MEDS ORDERED: ONDANSETRON 4 MG/2 ML VIAL IVP PRN (00:45)
[2019-07-17] MEDS: ALBUTEROL SULFATE/IPRATROPIU 3 ML SOL IH SCH ×3 (01:03→13:53)
--- NOTE | 2019-07-17 01:12 | NUR ---
PT. REQUESTED FOR NAUSEA AND ANTI VOMITING IVP MEDICATION . BEEN VOMITING AND HAVING NAUSEA FEELING. A/O X 4. Lashaun BHANDARI ORDERED IVP . PT. TRYING TO GO TO SLEEP NOW AT THIS TIME. ZOFRAN IVP ADMINISTERED REQUESTED BY PT.
--- NOTE | 2019-07-17 01:13 | NUR ---
PATIENT ON 2L NC, PULSE OX SAT 97%. SCHEDULED BREATHING TREATMENT ADMINISTERED TOLERATED TX WELL WITHOUT ADVERSE SIDE EFFECTS. NO ACUTE RESPIRATORY DISTRESS NOTED AT THIS TIME. WILL CONTINUE TO MONITOR.
[2019-07-17 04:08] VITALS: BP 170/75
[2019-07-17] MEDS: BLOOD GLUCOSE MONITORING 1 DEV DEV FS SCH ×3 (05:20→16:30)
--- NOTE | 2019-07-17 05:27 | NUR ---
PT. SLEPT WELL POST ANTI NAUSEA MEDICATION. WOKE UP AT THIS TIME RT PERSONAL HYGIENE RENDERED. MEDICATED WITH NORCO RT COMPLAINT OF HEADACHE. ABLE TO GO BACK TO SLEEP.
[2019-07-17] MEDS: BUDESONIDE 0.5 MG/2 ML NEBU INH SCH (06:35)
[2019-07-17 06:52] LABS: ANION GAP 16.5 (8-16); CARBON DIOXIDE 20.6 mmol/L (21-32); POTASSIUM 4.1 mmol/L (3.5-5.1)
[2019-07-17 06:55] LABS: MAGNESIUM 1.6 mg/dL (1.8-2.4); PHOSPHORUS 6.2 mg/dL (2.5-4.9)
[2019-07-17 06:59] LABS: BASOPHILS % (AUTO) 0.5 % (0.0-2.0); EOSINOPHILS # (AUTO) 0.1 K/uL (0-0.4); EOSINOPHILS % (AUTO) 1.5 % (0.0-4.0); HEMATOCRIT 22.1 % (36-48); HEMOGLOBIN 7.5 g/dL (12.0-16.0); LYMPHOCYTES # (AUTO) 0.8 K/uL (2.5-16.5); LYMPHOCYTES % (AUTO) 17.4 % (20.5-51.1); MEAN CORPUSCULAR HEMOGLOBIN 30 pg (27-31); MEAN CORPUSCULAR HGB CONC 34 g/dL (33-37); MEAN CORPUSCULAR VOLUME 88.6 fL (80-94); MONOCYTES # (AUTO) 0.6 K/uL (0.8-1.0); MONOCYTES % (AUTO) 13.1 % (1.7-9.3); NEUTROPHILS # (AUTO) 3.1 K/uL (1.8-7.7); NEUTROPHILS % (AUTO) 67.5 % (42.2-75.2); PLATELET COUNT (AUTO) 125 K/uL (140-450); RED BLOOD CELL COUNT(AUTO) 2.49 MIL/uL (4.20-5.40); RED CELL DISTRIBUTION WIDTH 13.5 % (11.6-13.7); WHITE BLOOD COUNT (AUTO) 4.6 K/uL (4.8-10.8)
--- NOTE | 2019-07-17 07:16 | NUR ---
REPORT RECEIVED FROM JOWL TRIMMER NURSE FOR CONTINUITY OF CARE. PATIENT IS SLEEPING IN BED. CALL LIGHT ON AND WITHIN REACH . WILL CONTINUE TO MONITOR.
[2019-07-17 07:18] LABS: CREATININE 6.6 mg/dL (0.6-1.3)
[2019-07-17 08:00] VITALS: BP 161/55
--- NOTE | 2019-07-17 08:30 | NUR ---
PATIENT HAS BEEN SCREENED AND CATEGORIZED MODERATE NUTRITION RISK. PATIENT WILL BE SEEN WITHIN 3-5 DAYS OF ADMISSION. 07/18/19 07/20/[address]
[2019-07-17] MEDS ORDERED: FUROSEMIDE 40 MG/4 ML VIAL IVP SCH ×2 (08:49→13:00)
[2019-07-17] MEDS ORDERED: hydrALAZINE 25 MG TAB ONE (08:57)
[2019-07-17] MEDS ORDERED: ATORVASTATIN 20 MG TAB PO SCH (09:00)
[2019-07-17] MEDS ORDERED: FERROUS SULFATE 325 MG TABEC PO SCH (09:00)
[2019-07-17] MEDS ORDERED: LORATADINE 10 MG TAB PO SCH (09:00)
[2019-07-17] MEDS ORDERED: CALCITRIOL 0.25 MCG CAPLF PO SCH (09:00)
[2019-07-17] MEDS ORDERED: CHOLECALCIFEROL 1,000 IU TAB PO SCH (09:00)
[2019-07-17] MEDS ORDERED: FLUTICASONE NASAL 50 MCG/ACTUATION 16 GM BTL NS SCH (09:00)
[2019-07-17] MEDS ORDERED: DOCUSATE SODIUM 100 MG GELCAP PO SCH (09:00)
[2019-07-17] MEDS: hydrALAZINE 25 MG TAB PO SCH ×3 (09:00→17:33)
[2019-07-17] MEDS ORDERED: FUROSEMIDE 100 MG/10 ML VIAL IV SCH (09:00)
[2019-07-17] MEDS ORDERED: amLODIPine 5 MG TAB PO SCH ×2 (09:00)
[2019-07-17] MEDS: SODIUM BICARBONATE 650 MG TAB PO SCH ×3 (09:02→17:33)
[2019-07-17] MEDS: CARVEDILOL 12.5 MG TAB PO SCH (09:17)
[2019-07-17 12:00] VITALS: BP 155/75
[2019-07-17] MEDS ORDERED: EPOETIN ALFA 10,000 UNITS/ML VIAL IV SCH (13:30)
[2019-07-17] MEDS ORDERED: LEVO750T2 PO (14:54)
[2019-07-17 16:00] VITALS: BP 146/61
[2019-07-17 17:55] VITALS: BP 146/65
[2019-07-17] MEDS ORDERED: LEVOFLOXACIN 250 MG/D5 PREMIX 50 ML IV SCH (21:00)
== END 2019-07-17 18:30 | disposition home or self-care (01) | DRG 133 ==
LOC: MED 19:06 → MTU 21:52
PROVIDERS: ADMIT Internal Medicine Pulmonary Disease; ATTEND Internal Medicine Pulmonary Disease
DX: J96.01 Acute respiratory failure with hypoxia (principal); J18.0 Bronchopneumonia, unspecified organism; E11.21 Type 2 diabetes mellitus with diabetic nephropathy; I12.0 Hypertensive chronic kidney disease with stage 5 chronic kidney disease or end stage renal disease; J18.9 Pneumonia, unspecified organism; N18.6 End stage renal disease; D64.9 Anemia, unspecified; E78.5 Hyperlipidemia, unspecified; I25.10 Atherosclerotic heart disease of native coronary artery without angina pectoris; J45.909 Unspecified asthma, uncomplicated; G47.00 Insomnia, unspecified; E11.22 Type 2 diabetes mellitus with diabetic chronic kidney disease; D63.8 Anemia in other chronic diseases classified elsewhere; Z79.899 Other long term (current) drug therapy; Z99.2 Dependence on renal dialysis
CPT/HCPCS: 36415; 36600; 71045; 80048; 80053; 81001; 82803; 82948; 83735; 83880; 84100; 84484; 85025; 87040; 87070; 87081; 87205; 93005; 94640; 96365; 96366; 96367; 99285; J0696; J0885; J1815; J1940; J1956; J2405; J7060; J7620; J7626; Q0092

== ENCOUNTER 2019-07-31 15:16 | Emergency (ER) | payer OTHER ==
[~2019-07-31] VITALS: Ht 162.6 cm; Wt 88.5 kg
[~2019-07-31 15:16] MED LIST changes: +ACET-8386 PO; +FISH10005 PO; +FLONAS NS; +IMO2 PO; +LEVO750T2 PO; +MELA5TAB6 PO; +ONDA4ODT2 PO; +ROC.25 PO; +[UNRECOGNIZED DRUG - CODE] PO
[2019-07-31 15:19] VITALS: BP 169/88
--- NOTE | 2019-07-31 15:26 | NUR ---
pt w/c assisted to bed 12.
--- NOTE | 2019-07-31 16:24 | NUR ---
49 y/f bib daughter c/o left knee pain s/p fall 2 days ago. Pain 05/04 difficutly ambulating hx DM, Dialysis (M-F), receives PD, last dialysis , stents, IN, asthma
[2019-07-31] MEDS: KETOROLAC 30 MG/ML VIAL IM ONE (16:35)
[2019-07-31 17:40] VITALS: BP 154/68
--- NOTE | 2019-07-31 17:40 | NUR ---
PLACED KNEE IMMOBILIZER ON PTS LEFT KNEE
--- NOTE | 2019-07-31 17:40 | NUR ---
Patient discharged with v/s stable. Written and verbal after care instructions given and explained. Patient alert, oriented and verbalized understanding of instructions. Wheel Chair Assisted with to car. All questions addressed prior to discharge. ID band removed. Patient advised to follow up with PMD. Rx of Acetaminophen given. Patient educated on indication of medication including possible reaction and side effects. Opportunity to ask questions provided and answered.
== END 2019-07-31 17:40 | disposition home or self-care (01) ==
LOC: MED 15:16
DX: S83.92XA Sprain of unspecified site of left knee, initial encounter (principal); S70.02XA Contusion of left hip, initial encounter; J45.909 Unspecified asthma, uncomplicated; E11.9 Type 2 diabetes mellitus without complications; I10 Essential (primary) hypertension; Z90.49 Acquired absence of other specified parts of digestive tract; Z98.890 Other specified postprocedural states; Z79.899 Other long term (current) drug therapy; W01.0XXA Fall on same level from slipping, tripping and stumbling without subsequent striking against object, initial encounter; Y93.89 Activity, other specified; Y92.89 Other specified places as the place of occurrence of the external cause; Y99.8 Other external cause status
CPT/HCPCS: 29505; 73502; 73562; 96372; 99283; J1885; Q0092

== ENCOUNTER 2020-02-16 09:14 | Inpatient (IN) | payer OTHER, SELFPAY ==
[~2020-02-16] VITALS: Ht 162.6 cm; Wt 70.8 kg
[~2020-02-16 09:14] MED LIST changes: +CETI-120 PO; -CETI-32 PO
--- NOTE | 2020-02-16 09:15 | NUR ---
PT BIBA AMD TAKEN TO BED 3.
[2020-02-16 09:28] VITALS: BP 125/71
--- NOTE | 2020-02-16 09:38 | NUR ---
49 Y/F PRESENTS TO ED FOR SOB SINCE LAST NIGHT, PT REPORTS NONPRODUCTIVE COUGH, DENIES FEVER. PT REPORTS NASAL CONGESTION, SORE THROAT. PT ALSO HAS CHRONIC N/V/D D/T DIALYSIS. LAST DIALYSIS TODAY. PT REPORTS PERITONIAL DIALYSIS 7X/ WEEK. PT REPORTS LOW BACK ACHING PAIN 9/10. PT A &O RR EVEN AND UNALBORED. PT SATTING AT 94 % ON 2L NC. ABD SOFT, BS ACTIVE X 4 QUADRANTS. NKDA PMH- ASHMA, DM, RENAL FAILURE, STENT
--- NOTE | 2020-02-16 10:12 | NUR ---
analytical laboratory technician at bedside.
[2020-02-16 10:28] LABS: BASOPHILS % (AUTO) 0.5 % (0.0-2.0); EOSINOPHILS # (AUTO) 0.3 K/uL (0-0.4); EOSINOPHILS % (AUTO) 3.4 % (0.0-4.0); HEMATOCRIT 22.5 % (36-48); HEMOGLOBIN 7.4 g/dL (12.0-16.0); LYMPHOCYTES # (AUTO) 1.2 K/uL (2.5-16.5); LYMPHOCYTES % (AUTO) 13.8 % (20.5-51.1); MEAN CORPUSCULAR HEMOGLOBIN 31 pg (27-31); MEAN CORPUSCULAR HGB CONC 33 g/dL (33-37); MEAN CORPUSCULAR VOLUME 95.3 fL (80-94); MONOCYTES # (AUTO) 0.6 K/uL (0.8-1.0); MONOCYTES % (AUTO) 6.5 % (1.7-9.3); NEUTROPHILS # (AUTO) 6.7 K/uL (1.8-7.7); NEUTROPHILS % (AUTO) 75.8 % (42.2-75.2); PLATELET COUNT (AUTO) 123 K/uL (140-450); RED BLOOD CELL COUNT(AUTO) 2.36 MIL/uL (4.20-5.40); RED CELL DISTRIBUTION WIDTH 13.1 % (11.6-13.7); WHITE BLOOD COUNT (AUTO) 8.8 K/uL (4.8-10.8)
[2020-02-16 10:49] LABS: ALBUMIN 2.7 g/dL (3.4-5.0); ANION GAP 15.9 (8-16); CARBON DIOXIDE 26.2 mmol/L (21-32); POTASSIUM 4.1 mmol/L (3.5-5.1); TOTAL BILIRUBIN 0.3 mg/dL (0.0-1.0)
--- NOTE | 2020-02-16 11:05 | NUR ---
COVID SWAB COLLECTED, PT TOLERTED WELL.
[2020-02-16 11:06] LABS: CREATININE 8.6 mg/dL (0.6-1.3)
--- NOTE | 2020-02-16 11:09 | NUR ---
PT TAKEN OFF [address] LESTER, PT SATTING 85-86% AFTER 5 MINS. PT PLACED BACK ON 2 L NC.
--- NOTE | 2020-02-16 11:40 | NUR ---
ERMD AT BEDSIDE FOR RESULTS/ REEVALUATION
--- NOTE | 2020-02-16 11:50 | NUR ---
FLU AND RSV SWAB COLLECTED AND TAKEN TO LAB.
--- NOTE | 2020-02-16 11:52 | NUR ---
RT AT BEDSIDE FOR ABG.
[2020-02-16] MEDS ORDERED: ACETAMINOPHEN EXTRA STRENGTH 500 MG TAB PO ONE (11:55)
--- NOTE | 2020-02-16 11:56 | NUR ---
ABG ATTEMPTS X [address] JOSE WINTERS NOTIFIED
--- NOTE | 2020-02-16 12:10 | NUR ---
PT SITTING UPRIGHT IN BED EATING LUNCH.
[2020-02-16] MEDS ORDERED: NITR0.4T2 SL (12:11)
[2020-02-16] MEDS ORDERED: HYDR-1093 PO (12:11)
[2020-02-16] MEDS ORDERED: ALBU0.0912 IH (12:14)
[2020-02-16] MEDS ORDERED: FERR1TAB42 PO (12:14)
[2020-02-16] MEDS ORDERED: DOCU-299 PO (12:14)
[2020-02-16 12:23] LABS: PROTHROMBIN TIME 10.2 secs (10.8-13.4)
[2020-02-16 12:32] LABS: LACTATE DEHYDROGENASE 178 U/L (81-234)
[2020-02-16 12:49] LABS: RSV NEGATIVE (NEGATIVE)
[2020-02-16 13:12] LABS: C-REACTIVE PROTEIN QUANT 1.6 mg/dL (0.0-0.9)
--- NOTE | 2020-02-16 13:18 | NUR ---
UA specimen collected and sent to lab. Patient assisted back into bed into position of comfort. Lights dimmed in room. Call light left within reach. Belongings placed in belongings bag with patient label and set on bedside chair. Patient talking on her phone with family member. Water pitcher provided on bedside table with water cup. All other needs needs addressed. Bed left in lowest position. Pt instructed to utilize call light with any needs. Pt verbalized understanding.
[2020-02-16 13:29] LABS: APPEARANCE,URINE HAZY (CLEAR); BILIRUBIN,URINE NEGATIVE (NEGATIVE); BLOOD, URINE NEGATIVE (NEGATIVE); COLOR,URINE AMBER (YELLOW); LEUKOCYTE ESTERASE ,URINE NEGATIVE (NEGATIVE); NITRITE, URINE NEGATIVE (NEGATIVE); UGLUCOSE 1+ (NEGATIVE)
--- NOTE | 2020-02-16 14:00 | NUR ---
PT SATTING 93% ON 2L NC. PT INCREASED TO 4LNC AND SATTING 97%
--- NOTE | 2020-02-16 14:00 | NUR ---
PT REPORTING UPPER BACK PAIN AND REQUESING PAIN MEDICATION, "SOMETHING TO HELP ME RELAX". DR. ORTIZ CONTACTED.
--- NOTE | 2020-02-16 14:09 | NUR ---
PT REPORTING NAUSEA, GIVEN EMESIS BAG, SEATED IN UPRIGHT POSITION. PT ACTIVELY VOMITING, WILL INFORM DR. ORTIZ AND REQUEST ANTIEMETICS.
[2020-02-16] MEDS: ONDANSETRON 4 MG/2 ML VIAL IVP PRN ×2 (14:24→22:26)
--- NOTE | 2020-02-16 14:24 | NUR ---
PT REPORTING HEMOPTYSIS, DR. ORTIZ AT BEDSIDE.
[2020-02-16] MEDS ORDERED: LORazepam 0.5 MG TAB ONE (14:26)
--- NOTE | 2020-02-16 14:30 | NUR ---
PER VERBAL ORDER OF DR. ORTIZ, 0.5MG Q 6 HOURS PRN FOR ANXIETY.
[2020-02-16] MEDS: HYDROcodone/APAP 5/325 MG 1 TAB TAB PO PRN ×2 (14:34→21:40)
--- NOTE | 2020-02-16 14:34 | NUR ---
PER VERBAL ORDER OF DR. ORTIZ, 0.5MG ATIVAN GIVEN PO
[2020-02-16] MEDS ORDERED: DEXTROSE 50% 50 ML SYR IVP PRN (14:50)
--- NOTE | 2020-02-16 15:05 | NUR ---
RT CALLED FOR BREATHING TX.
[2020-02-16] MEDS: ALBUTEROL 0.083% 2.5 MG/3 ML NEBU INH PRN ×3 (15:20→22:44)
--- NOTE | 2020-02-16 15:20 | NUR ---
RT BEDSIDE FOR NEBULIZER TX.
--- NOTE | 2020-02-16 15:20 | NUR ---
HHN PRN THERAPY AND RESPIRATORY DRUG GIVEN ORDERED ENCOURAGED PATIENT FOR DEEP BREATH AND COUGH DURING THERAPY
[2020-02-16] MEDS: BLOOD GLUCOSE MONITORING 1 DEV DEV FS SCH ×2 (15:46→21:35)
--- NOTE | 2020-02-16 15:46 | NUR ---
CAPILLARY ACCUCHECK 170.
[2020-02-16] MEDS: INSULIN LISPRO SLIDING SCALE 100 UNITS/ML VIAL SUBQ PRN ×2 (16:02→21:37)
[2020-02-16] MEDS ORDERED: cefTRIAXone 1,000 MG VIAL ONE (16:07)
[2020-02-16] MEDS ORDERED: AZITHROMYCIN 250 MG in DEXTROSE 5% 250 ML IV SCH (17:00)
--- NOTE | 2020-02-16 17:07 | NUR ---
SPOKE TO CARRIE FROM PHARMACY REGARDING ZITHROMAX, STATED HE WOULD MAKE IT AND SEND IT OUT IN A FEW MINUTES.
--- NOTE | 2020-02-16 17:13 | NUR ---
VSS. ALL NEEDS MET AT THIS TIME, NORMAL RISE AND FALL OF CHEST. PT DENIES PAIN OR SOB AT THIS TIME, WILL CONTINUE TO MONITOR.
--- NOTE | 2020-02-16 17:31 | NUR ---
PHARMACY STATES THEY ARE MIXING THE ZITHROMAX IV RIGHT NOW
--- NOTE | 2020-02-16 18:06 | NUR ---
PT SITTING UPRIGHT IN BED, EATING DINNER.
--- NOTE | 2020-02-16 18:26 | NUR ---
VS WNL, NORMAL RISE AND FALL OF CHEST, ALL NEEDS MET, DENIES PAIN.
[2020-02-16] MEDS ORDERED: EPOETIN ALFA 20,000 UNITS/ML VIAL SUBQ SCH (18:45)
[2020-02-16] MEDS ORDERED: IPRATROPIUM 0.02% 0.5 MG/2.5 ML NEBU INH SCH (19:00)
[2020-02-16] MEDS ORDERED: ALBUTEROL 0.083% 2.5 MG/3 ML NEBU INH SCH (19:00)
--- NOTE | 2020-02-16 19:07 | NUR ---
TRANSFER OF CARE AT THIS TIME TO WALDO BADILLO
--- NOTE | 2020-02-16 19:11 | NUR ---
RECEIVED REPORT FROM WALDO EVERETT FOR CONTINUITY OF CARE.
--- NOTE | 2020-02-16 19:20 | NUR ---
PT RESTING IN BED, RR EVEN AND UNLABORED. NO NEW CONCERNS AT THIS TIME. BED IN LOWEST POSITION, SIDE RAIL UP X1. WILL CONTINUE TO MONITOR.
--- NOTE | 2020-02-16 20:54 | NUR ---
PT ADMITTED TO THE CARE OF DR SANCHEZ. ADMITTED TO TELE ROOM 112B. REPORT GIVEN TO GINA HAAS.
[2020-02-16] MEDS: carvediloL 6.25 MG TAB PO SCH (21:00)
--- NOTE | 2020-02-16 21:30 | NUR ---
PT ARRIVED FROM ER TO UNIT VIA WHEELCHAIR. RECEIVED REPORT FROM ER NURSE. PATIENT IS AAOX4, AMBULATORY, AND ABLE TO MAKE NEEDS KNOWN. PT CALM AND COOPERATIVE TO CARE. RESPIRATIONS EVEN AND UNLABORED. PT ON O2 4LPM/NC. SKIN IS WARM, DRY, AND INTACT. ABDOMEN IS SOFT. PT HAS PERITONEAL DIALYSIS ACCESS PATENT AND INTACT. IV ACCESS ON LEFT HAND G20 PATENT AND INTACT WELL. PT COMPLAINS OF BACK PAIN. WILL MEDICATE LATER. PT WELCOMED TO UNIT. ORIENTED TO ROOM AND EQUIPMENT. VITAL SIGNS TAKEN. MRSA SWAB DONE. PLAN OF CARE DISCUSSED. PT VERBALIZED UNDERSTANDING. PT KEPT COMFORTABLE. SAFETY MEASURES IN PLACE. CALL LIGHT WITHIN REACH. WILL CONTINUE TO MONITOR.
[2020-02-16] MEDS: INSULIN LANTUS 100 UNITS/ML 10 ML VIAL SUBQ SCH (21:37)
--- NOTE | 2020-02-16 21:40 | NUR ---
SCHEDULED MEDS GIVEN. EPOETIN NOT GIVEN D/T NOT BEING AVAILABLE. CARVEDILOL PLACED ON HOLD DUE TO BP BEING ON THE LOW SIDE. PT GIVEN NORCO ORDERED. DIALYSIS NURSE AT BEDSIDE PREPARING FOR PERITONEAL DIALYSIS. PT KEPT COMFORTABLE. WILL CONTINUE TO MONITOR
--- NOTE | 2020-02-16 22:26 | NUR ---
PERITONEAL DIALYSIS ONGOING. PT VOMITED SCANT AMOUNT EMESIS. ZOFRAN GIVEN ORDERED. WILL CONTINUE TO MONITOR.
[2020-02-16] MEDS ORDERED: TEMAZEPAM 15 MG CAP PO PRN (22:30)
[2020-02-16] MEDS ORDERED: HYDROcodone/APAP 10/325 MG 1 TAB TAB PO PRN (22:30)
--- NOTE | 2020-02-16 22:44 | NUR ---
PT VERBALIZED . RT AT BEDSIDE GIVING BREATHING TREATMENT. O2 SAT 95%. PT KEPT COMFORTABLE. CALL LIGHT WITHIN REACH. WILL CONTINUE TO MONITOR.
[2020-02-17] VITALS: BP 134/82
--- NOTE | 2020-02-17 00:11 | NUR ---
VITAL SIGNS STABLE. PT ASLEEP. PERITONEAL DIALYSIS ONGOING. NO COMPLAINTS MADE AT THIS TIME. CALL LIGHT WITHIN REACH. WILL CONTINUE TO MONITOR.
[2020-02-17] MEDS: ALBUTEROL SULFATE/IPRATROPIU 3 ML SOL IH SCH ×4 (01:15→19:00)
--- NOTE | 2020-02-17 02:11 | NUR ---
PT SLEEPING VISIBLE CHEST RISE AND FALL NOTED. O2 IN PLACE. O2 REDUCED TO 3LPM/NC PER RT. PT NOT IN DISTRESS. PERITONEAL DIALYSIS IN PLACE. CALL LIGHT WITHIN REACH. WILL CONTINUE TO MONITOR.
[2020-02-17 04:00] VITALS: BP 115/68
[2020-02-17] MEDS: ACETAMINOPHEN 325 MG TAB PO PRN ×2 (04:35→15:02)
--- NOTE | 2020-02-17 04:35 | NUR ---
VITAL SIGNS STABLE. PT ASSISTED IN GOING TO RESTROOM AND BACK TO BED SAFELY. PT COMPLAINED OF BACK PAIN AFTER. PRN PAIN MEDICATION GIVEN ORDERED. WILL CONTINUE TO MONITOR.
[2020-02-17] MEDS: BLOOD GLUCOSE MONITORING 1 DEV DEV FS SCH ×4 (06:26→21:00)
[2020-02-17] MEDS: INSULIN LISPRO SLIDING SCALE 100 UNITS/ML VIAL SUBQ PRN ×3 (06:27→17:15)
--- NOTE | 2020-02-17 06:29 | NUR ---
BLOOD SUGAR 196. INSULIN COVERAGE GIVEN ORDERED. WILL CONTINUE TO MONITOR.
--- NOTE | 2020-02-17 07:24 | NUR ---
GAVE BEDSIDE SHIFT REPORT TO DAY SHIFT NURSE FOR CONTINUITY OF CARE. PATIENT IS IN STABLE CONDITION.
--- NOTE | 2020-02-17 08:00 | NUR ---
AWAKE AND ALERT VERBALLY RESPONSIVE C/O NASAL DRYNESS WITH SUPPLEMENTAL OXYGEN USE POST HHN THERAPY ADDED HUMIDIFIER
--- NOTE | 2020-02-17 08:00 | NUR ---
RECEIVED REPORT FROM OPERATOR SUPPLY. PATIENT ALERT AWAKE ORIENTED X4, NOT IN ANY DISTRESS NOTED. INITIAL ASSESSMENT INITIATED. DENIES PAIN AT THIS TIME. WILL CONTINUE TO MONITOR.
[2020-02-17 08:33] VITALS: BP 119/65
[2020-02-17 08:58] LABS: MAGNESIUM 2.4 mg/dL (1.8-2.4); PHOSPHORUS 5.9 mg/dL (2.5-4.9)
[2020-02-17 09:16] LABS: ALBUMIN 2.5 g/dL (3.4-5.0); ANION GAP 16.7 (8-16); CARBON DIOXIDE 26.2 mmol/L (21-32); POTASSIUM 3.9 mmol/L (3.5-5.1); TOTAL BILIRUBIN 0.3 mg/dL (0.0-1.0)
[2020-02-17 09:25] LABS: BASOPHILS % (AUTO) 0.5 % (0.0-2.0); EOSINOPHILS # (AUTO) 0.2 K/uL (0-0.4); EOSINOPHILS % (AUTO) 2.2 % (0.0-4.0); HEMOGLOBIN 7.2 g/dL (12.0-16.0); LYMPHOCYTES # (AUTO) 1.3 K/uL (2.5-16.5); MEAN CORPUSCULAR HEMOGLOBIN 31 pg (27-31); MEAN CORPUSCULAR HGB CONC 33 g/dL (33-37); MEAN CORPUSCULAR VOLUME 95.2 fL (80-94); MONOCYTES # (AUTO) 0.6 K/uL (0.8-1.0); MONOCYTES % (AUTO) 6.5 % (1.7-9.3); NEUTROPHILS # (AUTO) 6.5 K/uL (1.8-7.7); NEUTROPHILS % (AUTO) 75.8 % (42.2-75.2); PLATELET COUNT (AUTO) 136 K/uL (140-450); RED BLOOD CELL COUNT(AUTO) 2.31 MIL/uL (4.20-5.40); RED CELL DISTRIBUTION WIDTH 13.1 % (11.6-13.7); WHITE BLOOD COUNT (AUTO) 8.5 K/uL (4.8-10.8)
[2020-02-17] MEDS: ATORVASTATIN 20 MG TAB PO SCH (09:38)
[2020-02-17] MEDS: carvediloL 6.25 MG TAB PO SCH ×2 (09:38→21:00)
[2020-02-17 10:21] LABS: CREATININE 8.5 mg/dL (0.6-1.3)
--- NOTE | 2020-02-17 12:00 | NUR ---
FAXED ORDER FOR HOME 02 TO [facility]. WILL FOLLOW UP Addendum: 02/17/20 at 1339 by Ernestine Gallego CM CALLED [facility] TO F/U NO ANSWER BUT LEFT A VOICEMAIL Addendum: 02/17/20 at 1532 by Ernestine Gallego CM FOLLOWED UP WITH [facility] LEFT ANOTHER VOICEMAIL. Addendum: 02/17/20 at 1550 by Ernestine Gallego CM I WAS ABLE TO SPEAK TO LOIS FROM [facility] SHE NEEDS AUTH FROM [facility] IN ORDER TO SET UP HOME O2. I CALLED AFTER HOURS NURSE MATTY [phone] KAYLYN LEFT A FEW VOICE MAILS. Addendum: 02/19/20 at 1045 by Ernestine Gallego CM FOLLOWED UP WITH SAMANTHA FROM [facility] WHO IS COVERING FOR LIBAN TODAY [phone] SHE PROVIDED AUTH # [id number]. SPOKE WITH LOIS [phone] FROM [facility] AND PROVIDED AUTH # FOR HOME O2. SHE IS GOING TO CONTACT ME BACK WITH ETA Addendum: 02/19/20 at 1121 by Ernestine Gallego CM LOIS FROM [facility] FOLLOWED UP ETA FOR BEDSIDE WILL BE BEFORE 2:00 PM NOTIFIED RN
[2020-02-17 12:06] VITALS: BP 113/71
[2020-02-17 16:00] VITALS: BP 130/88
--- NOTE | 2020-02-17 16:10 | NUR ---
COMPLAINED OF DIZZINESS, WILL TAKE VITAL SIGN. WILL CONTINUE TO MONITOR.
[2020-02-17] MEDS ORDERED: LORazepam 2 MG/ML VIAL IVP PRN (16:50)
[2020-02-17] MEDS ORDERED: LORazepam 2 MG/ML VIAL ONE (17:30)
--- NOTE | 2020-02-17 18:50 | NUR ---
PATIENT C/O OF ANXIETY ATIVAN IV GIVEN ORDERED. WILL CONTINUE TO MONITOR.
--- NOTE | 2020-02-17 19:19 | NUR ---
REPORT GIVEN TO WALDO SHARMA FOR CONTINUITY OF CARE.
--- NOTE | 2020-02-17 19:25 | NUR ---
RECEIVED PT ON BED, AAOX4, VERBALLY RESPONSIVE, OCCASIONALLY YELLS OUT, PT STATED SHE IS ANXIOUS AND COMPLAINING THAT HER LEGS IS RESTLESS, TINGLY SENSATION AND NUMB, ENCOURAGE PT TO CALM DOWN AND INSTRUCTED TO TAKE DEEP BREATHS, WILL CALL BATCH UNIT TREATER DOCTOR, PERITONEAL DIALYSIS ON-GOING, CALL LIGHT WITHIN REACH.
[2020-02-17] MEDS ORDERED: diphenhydrAMINE 50 MG/ML VIAL IVP SCH (19:45)
[2020-02-17] MEDS ORDERED: diphenhydrAMINE 50 MG/ML VIAL ONE (19:46)
--- NOTE | 2020-02-17 19:54 | NUR ---
PT REFUSED 1899 Tx
[2020-02-17 20:00] VITALS: BP 95/69
[2020-02-17] MEDS: INSULIN LANTUS 100 UNITS/ML 10 ML VIAL SUBQ SCH (20:59)
[2020-02-17] MEDS: HYDROcodone/APAP 5/325 MG 1 TAB TAB PO PRN (21:32)
--- NOTE | 2020-02-17 21:50 | NUR ---
PT SEEN SITTING ON THE FLOOR, PER PT TRIED TO WALK AROUND BUT HER LEGS GAVE WAY, DENIES ANY PAIN, JUST FEELING ANXIOUS AND RESTLESS, STILL COMPLAINING OF RESTLESS LEG WITH TINGLING AND NUMBNESS SENSATION, ABLE TO STAND UP AND ASSISTED BACK TO BED, REINFORCED TO STAY IN BED DUE TO WEAKNESS, VITAL SIGNS TAKEN:BP-100/69, HR-108, DENIES ANY PAIN, CALLED DR PEREA MADE AWARE OF FALL AND STILL WITH ANXIETY AND RESTLESS LEG, ORDERED TO PUT SITTER FOR SAFETY, MONITORED CLOSELY.
--- NOTE | 2020-02-17 22:30 | NUR ---
PT ANXIOUS AND RESTLESS, DAUGHTER CALVILLO CALLED AND TALKED TO PT, TRIED TO CONVINCED PT TO RELAX AND TRIED TO GET SOME SLEEP, RN AT BEDSIDE TO WATCH PT FOR SAFETY, MONITORED CLOSELY.
--- NOTE | 2020-02-17 23:10 | NUR ---
PT SLEEPING, NO SIGNS OF DISTRESS, RN AT BEDSIDE FOR SAFETY MEASURES.
[2020-02-18] VITALS: BP 111/70
--- NOTE | 2020-02-18 00:20 | NUR ---
PT AWAKE TALKING TO SON ALEXSANDER ON THE CELL PHONE, VITAL SIGNS STABLE, ST ON TELE-106, 86% ON 4L NC O2, RT KELSY MADE AWARE, STATED TO INCREASED O2 TO 6L, SAT WENT UP TO 90-91%, DENIES ANY PAIN, PT CALM AND COOPERATIVE, PT WENT BACK TO SLEEP AFTER THE CALL, RN AT BEDSIDE FOR SAFETY, CONTINUE TO MONITOR CLOSELY.
[2020-02-18] MEDS: ALBUTEROL SULFATE/IPRATROPIU 3 ML SOL IH SCH ×4 (01:00→19:00)
[2020-02-18 04:30] VITALS: BP 110/56
--- NOTE | 2020-02-18 04:30 | NUR ---
PT SLEEPING, EASILY AROUSABLE, DROWSY, VITAL SIGNS STABLE, O2 SAT-91-92% ON 6L NC, NO RESP DISTRESS NOTED, PT WENT BACK TO SLEEP, RN AT BEDSIDE FOR SAFETY.
[2020-02-18] MEDS: INSULIN LISPRO SLIDING SCALE 100 UNITS/ML VIAL SUBQ PRN ×3 (06:08→17:10)
--- NOTE | 2020-02-18 06:11 | NUR ---
PT AWAKE, TALKING TO DAUGHTER ON CELLPHONE, PT STATED FEELING BETTER AND HAD A SEVERE PANIC ATTACK LAST NIGHT, PT CALM AT THIS TIME, BLOOD SUGAR CHECKED WITH 221 RESULT, COVERAGE GIVEN, RN AT BEDSIDE FOR SAFETY.
--- NOTE | 2020-02-18 07:11 | NUR ---
PATIENT HAS BEEN SCREENED AND CATEGORIZED MODERATE NUTRITION RISK. PATIENT WILL BE SEEN WITHIN 3-5 DAYS OF ADMISSION. 02/19/20 02/21/[address]
--- NOTE | 2020-02-18 07:25 | NUR ---
PT AWAKE, NO SIGNS OF DISTRESS, REPORT GIVEN TO WALDO PITTMAN FOR CONTINUITY OF CARE.
[2020-02-18] MEDS: BLOOD GLUCOSE MONITORING 1 DEV DEV FS SCH ×4 (07:30→20:24)
--- NOTE | 2020-02-18 07:35 | NUR ---
AWAKE AND ALERT VERBALLY RESPONSIVE SATURATION 96% ON SUPPLEMENTAL OXYGEN AT 6 LPM VIA NC POST HHN THERAPY TITRATED FIO2 TO 4 LPM CHAN/RN NOTIFIED
[2020-02-18 08:00] VITALS: BP 141/76
--- NOTE | 2020-02-18 08:00 | NUR ---
RECEIVED REPORT FROM WALDO SHARMA. PATIENT ALERT AWAKE ORIENTED X4, NOT IN ANY DISTRESS NOTED. DENIES PAIN AT THIS TIME. VERBALIZED SHE FEELS BETTER AT THIS TIME. INITIAL ASSESSMENT INITIATED. PER DIALYSIS NURSE, OUTPUT ON PERITONEAL DIALYSIS IS 1,160 ML. SITTER AT BEDSIDE. PATIENT IS CALM AT THIS TIME, NO SIGN OF ANXIETY.
[2020-02-18] MEDS: carvediloL 6.25 MG TAB PO SCH ×2 (08:39→21:00)
[2020-02-18] MEDS: ATORVASTATIN 20 MG TAB PO SCH (08:39)
[2020-02-18 08:43] LABS: BASOPHILS % (AUTO) 0.6 % (0.0-2.0); EOSINOPHILS # (AUTO) 0.1 K/uL (0-0.4); EOSINOPHILS % (AUTO) 1.9 % (0.0-4.0); HEMATOCRIT 20.2 % (36-48); LYMPHOCYTES # (AUTO) 1.3 K/uL (2.5-16.5); LYMPHOCYTES % (AUTO) 19.5 % (20.5-51.1); MEAN CORPUSCULAR HEMOGLOBIN 32 pg (27-31); MEAN CORPUSCULAR HGB CONC 33 g/dL (33-37); MONOCYTES # (AUTO) 0.4 K/uL (0.8-1.0); MONOCYTES % (AUTO) 5.6 % (1.7-9.3); NEUTROPHILS # (AUTO) 4.9 K/uL (1.8-7.7); NEUTROPHILS % (AUTO) 72.4 % (42.2-75.2); PLATELET COUNT (AUTO) 142 K/uL (140-450); RED BLOOD CELL COUNT(AUTO) 2.11 MIL/uL (4.20-5.40); RED CELL DISTRIBUTION WIDTH 13.1 % (11.6-13.7); WHITE BLOOD COUNT (AUTO) 6.8 K/uL (4.8-10.8)
--- NOTE | 2020-02-18 09:00 | NUR ---
ALL DUE MEDICATION GIVEN AND TOLERATED WELL.
[2020-02-18 09:07] LABS: ALBUMIN 2.4 g/dL (3.4-5.0); CARBON DIOXIDE 28.1 mmol/L (21-32); POTASSIUM 4.1 mmol/L (3.5-5.1); TOTAL BILIRUBIN 0.3 mg/dL (0.0-1.0)
[2020-02-18 09:14] LABS: CREATININE 8.8 mg/dL (0.6-1.3)
[2020-02-18 10:21] LABS: HEMOGLOBIN 6.7 g/dL (12.0-16.0)
--- NOTE | 2020-02-18 10:21 | NUR ---
LAB CALLED FOR CRITICAL LAB VALUES, HGB 6.7, CALLED DR. THOMPSON WITH ORDER OF I UNIT PRBC. CONSENT SIGNED BY DR. THOMPSON. WILL LET PATIENT SIGN THE CONSENT.
[2020-02-18 11:52] VITALS: BP 98/55
[2020-02-18] MEDS: ONDANSETRON 4 MG/2 ML VIAL IVP PRN ×2 (12:11→22:00)
--- NOTE | 2020-02-18 13:42 | NUR ---
SATURATION 90% ON HUMIDIFIED SUPPLEMENTAL OXYGEN AT 4 LPM VIA NC POST HHN THERAPY CHANGED OXYGEN DEVICE TO OXYMIZER AT 3 LPM WARP DRAWER TO MONITOR
--- NOTE | 2020-02-18 14:25 | NUR ---
SATURATION 93% ON SUPPLEMENTAL OXYGEN AT 3 LPM VIA OXYMIZER CHAN/WALDO NOTIFIED
--- NOTE | 2020-02-18 15:20 | NUR ---
LAB CALLED AND BLOOD IS NOT READY, PER LAB THERE IS ANTIBODY.
[2020-02-18 16:00] VITALS: BP 94/56
--- NOTE | 2020-02-18 16:22 | NUR ---
REPORT GIVEN TO WALDO PÉREZ FOR CONTINUITY OF CARE.
--- NOTE | 2020-02-18 16:23 | NUR ---
REPORT RECEIVED FROM TOYA HAAS. PATIENT IN STABLE CONDITION, RESTING COMFORTABLY IN BED ON 5L O2 OXIMIZER. WAS ON 2L O2, O2 SATURATION WAS 86-88% SO INCREASED TO 5L CURRENTLY. SITTER AT BEDSIDE. IV SITE ASYMPTOMATIC, SALINE LOCKED. ALL NEEDS MET AT THIS TIME. WILL CONTINUE TO MONITOR PATIENT.
--- NOTE | 2020-02-18 17:09 | NUR ---
BLOOD SUGAR 160, COVERAGE GIVEN. ORDERED ROCEPHIN GIVEN. PATIENT TOLERATING IT. NO COMPLAINTS AT THIS TIME. SITTER AT BEDSIDE. WILL CONTINUE TO MONITOR PATIENT.
--- NOTE | 2020-02-18 18:30 | NUR ---
PATIENT SIGNED BLOOD TRANSFUSION CONSENT, AWARE AND WAITING FOR 1 UNIT PRBC. PATIENT RESTING IN BED, NO COMPLAINTS AT THIS TIME. SITTER AT BEDSIDE. WILL CONTINUE TO MONITOR PATIENT AND ENDORSE TO ICE CARVER NURSE.
--- NOTE | 2020-02-18 19:10 | NUR ---
RECEIVED REPORT FROM WALDO PÉREZ. PATIENT ALERT AWAKE ORIENTED X4, PATIENT IS CALM AT THIS TIME, NO SIGN OF ANXIETY.NOT IN ANY DISTRESS NOTED. DENIES PAIN AT THIS TIME. VERBALIZED SHE FEELS BETTER AT THIS TIME. INITIAL ASSESSMENT INITIATED. FOR DIALYSIS TONIGHT PER DIALYSIS NURSE, SITTER AT BEDSIDE.
--- NOTE | 2020-02-18 19:11 | NUR ---
W/ OXIMIZER AT 5 LPM W/ O2 AT 91% Addendum: 02/19/20 at 0149 by Breonna Rose RN AMEND TO 92%
--- NOTE | 2020-02-18 19:30 | NUR ---
PERITONEAL DIALYSIS NURSE ARRIVED AND SET UP THE PD, WILL MONITOR
--- NOTE | 2020-02-18 19:31 | NUR ---
STILL AWAITING BLOOD FROM BLOOD BANK, NOT YET AVAILABLE.
[2020-02-18 20:00] VITALS: BP 100/57
--- NOTE | 2020-02-18 21:00 | NUR ---
COREG 6.25 MG HELD BECAUSE BP IS 109/67; WILL ALSO UNDERGO PERITONEAL DIALYSIS TODAY Addendum: 02/18/20 at 2210 by Breonna Rose RN HEART RATE IS 59 BPM
[2020-02-18] MEDS: INSULIN LANTUS 100 UNITS/ML 10 ML VIAL SUBQ SCH (21:39)
--- NOTE | 2020-02-18 22:03 | NUR ---
C/O OF NAUSEA GAVE ZOFRAN Addendum: 02/19/20 at 0746 by Breonna Rose RN AT 2230 PT SAID SHE THREW UP; VOMITED X 1
[2020-02-19] VITALS: BP 100/57
--- NOTE | 2020-02-19 00:18 | NUR ---
AWAITING FOR BLOOD, PENDING THE CROSSMATCHING, TALKED TO SINGH OF BLOOD BANK SHE SAID THAT PT HAS POSITIVE ANTIBODIES, SO THEY SEND IT OUT TO [facility], STILL WAITING FOR [facility] TO SEND IT BACK FROM THEIR HOSPITAL TO US.ALSO AFTER, NEEDS A CROSSMATCHING TO BE DONE, SINGH SAID THAT THEY WILL CALL US BACK ONCE READY. Addendum: 02/19/20 at 0022 by Breonna Rose RN DELETE--- PENDING CROSSMATCHING
--- NOTE | 2020-02-19 02:00 | NUR ---
PATIENT SLEEPING COMFORTABLY PT BEING MONITORED FREQUENTLY
[2020-02-19] MEDS: BLOOD GLUCOSE MONITORING 1 DEV DEV FS SCH ×2 (05:36→11:30)
[2020-02-19] MEDS: INSULIN LISPRO SLIDING SCALE 100 UNITS/ML VIAL SUBQ PRN (05:46)
[2020-02-19] MEDS: ALBUTEROL SULFATE/IPRATROPIU 3 ML SOL IH SCH ×2 (07:31→13:59)
[2020-02-19] MEDS: ONDANSETRON 4 MG/2 ML VIAL IVP PRN (07:49)
--- NOTE | 2020-02-19 07:49 | NUR ---
GIVEN ZOFRAN PT VOMITED 1 X; MODERATE AMOUNT ; CLEAR. PT IS NOT EATING
--- NOTE | 2020-02-19 07:59 | NUR ---
WILL ENDORSE TO NEXT SHIFT FOR CONTINUITY OF CARE
[2020-02-19 08:00] VITALS: BP 137/72
--- NOTE | 2020-02-19 08:00 | NUR ---
RECEIVED REPORT FROM METAL MELTER NURSE FOR CONTINUITY OF CARE. PATIENT IN STABLE CONDITION. RESPIRATIONS EVEN AND UNLABORED, O2 5L VIA OXYMIZER. IV INTACT AND PATENT. SAFETY MEASURES IN PLACE. BED IN LOW POSITION. BED ALARM ON. WILL CONTINUE TO MONITOR.
[2020-02-19 08:35] LABS: BASOPHILS # (AUTO) 0.1 K/uL (0.00-0.22); BASOPHILS % (AUTO) 0.6 % (0.0-2.0); EOSINOPHILS # (AUTO) 0.4 K/uL (0-0.4); EOSINOPHILS % (AUTO) 4.5 % (0.0-4.0); HEMATOCRIT 22.4 % (36-48); HEMOGLOBIN 7.3 g/dL (12.0-16.0); LYMPHOCYTES # (AUTO) 1.5 K/uL (2.5-16.5); LYMPHOCYTES % (AUTO) 16.9 % (20.5-51.1); MEAN CORPUSCULAR HEMOGLOBIN 32 pg (27-31); MEAN CORPUSCULAR HGB CONC 33 g/dL (33-37); MEAN CORPUSCULAR VOLUME 96.4 fL (80-94); MONOCYTES # (AUTO) 0.5 K/uL (0.8-1.0); MONOCYTES % (AUTO) 6.2 % (1.7-9.3); NEUTROPHILS # (AUTO) 6.3 K/uL (1.8-7.7); NEUTROPHILS % (AUTO) 71.8 % (42.2-75.2); PLATELET COUNT (AUTO) 183 K/uL (140-450); RED BLOOD CELL COUNT(AUTO) 2.32 MIL/uL (4.20-5.40); RED CELL DISTRIBUTION WIDTH 12.9 % (11.6-13.7); WHITE BLOOD COUNT (AUTO) 8.8 K/uL (4.8-10.8)
[2020-02-19] MEDS: ATORVASTATIN 20 MG TAB PO SCH (08:57)
[2020-02-19] MEDS: carvediloL 6.25 MG TAB PO SCH (08:57)
--- NOTE | 2020-02-19 08:57 | NUR ---
GAVE ORDERED DUE MEDICATIONS AT THIS TIME. PATIENT TOLERATED WELL. BED IN LOW POSITION. CALL LIGHT WITHIN REACH. BED ALARM ON. WILL CONTINUE TO MONITOR.
--- NOTE | 2020-02-19 10:11 | NUR ---
PATIENT SLEEPING AT THIS TIME. RESPIRATIONS EVEN AND UNLABORED. BED IN LOW POSITION. CALL LIGHT WITHIN REACH. BED ALARM ON. WILL CONTINUE TO MONITOR.
[2020-02-19 10:34] LABS: POTASSIUM 3.8 mmol/L (3.5-5.1)
[2020-02-19 10:35] LABS: ANION GAP 18.3 (8-16); CARBON DIOXIDE 25.5 mmol/L (21-32)
[2020-02-19 10:36] LABS: ALBUMIN 2.3 g/dL (3.4-5.0); TOTAL BILIRUBIN 0.4 mg/dL (0.0-1.0)
[2020-02-19 10:40] LABS: CREATININE 9.1 mg/dL (0.6-1.3)
[2020-02-19] MEDS ORDERED: AMOX-999 PO ×2 (11:30→16:46)
[2020-02-19] MEDS ORDERED: ONDA8TAB PO ×2 (11:31→16:46)
--- NOTE | 2020-02-19 11:54 | NUR ---
ENTRY LEVEL SOFTWARE DEVELOPER NOTE: Patient's Orientation Unable To Assess Information Provided By RAZ ARAMBULA - DAUGHTER Comments SW WAS UNABLE TO MEET PATIENT AT BEDSIDE DUE TO MEDICAL CONDITION. Covering Machine Tender, Realtionship and Phone Number RAZ ARAMBULA DAUGHTER [phone] Healthcare Power of Distribution Center Manager No Does Patient Have a POLST No Identifying Problems No Social Work Triggers Is A Social Work Consult Needed No Mandate Report Filed No Explanation Of Identifying Problems PATIENT WAS A 49-YEAR-OLD FEMALE ADMITTED FOR HYPOXIA. PATIENT HAS PMHX OF ASTHMA, DIABETES, ESRD, AND HEMODIALYSIS. Admitted From Home Pre-Admission Level Of Functioning Status Independent/Ambulatory Prior Resources/Services Used In Last 12 Months No Prior Resources Used Prior DME No Prior DME Used Dialysis Hemodialysis ESRD Outpatient Days EVERYDAY Dialysis Comments SW SPOKE WITH DAUGHTER RAZ ARAMBULA WHO WAS UNABLE TO RECALL DIALYSIS COMPANY. PER RAZ, PATIENT RECEIVES DIALYSIS EVERYDAY. Living Situation Lives With Family House Patient Had Caregiver No Home Support No Caregiver Issues Financial Issues No Known Financial Issue Referral To The Financial Counselor Needed No Factors/Needs No D/C Needs Identified Pt/Rep Participated In Discharge Plan Yes Patient/Family Agress With Discharge Plan Yes Discharge Plan Comments TENTATIVE DISCHARGE PLAN IS FOR PATIENT TO RETURN HOME. DC Plan Status Initiated
[2020-02-19] MEDS: ACETAMINOPHEN 325 MG TAB PO PRN (12:14)
--- NOTE | 2020-02-19 12:30 | NUR ---
O2 TANK DELIVERED TO PATIENT FOR HOME USE. INSTRUCTED PATIENT HOW TO OPERATE THE EQUIPMENT. ALL QUESTIONS ANSWERED AT THIS TIME.
--- NOTE | 2020-02-19 14:38 | NUR ---
PATIENT DRESSING AT THIS TIME FOR UPCOMING DISCHARGE.
--- NOTE | 2020-02-19 15:50 | NUR ---
GAVE DISCHARGE INSTRUCTIONS AT THIS TIME. INFORMED PATIENT PRESCRIPTIONS WERE NOT IN TO HOME PHARMACY AT THIS TIME. GYPSY TONG NEEDED TO BE PAGED. PATIENT STATED THAT SHE WAS NOT GOING TO WAIT FOR THE CALL. ID BAND REMOVED. IV REMOVED, LUMEN INTACT. PATIENT WHEELED TO LOBBY IN STABLE CONDITION. FAMILY WAITING WITH VEHICLE.
--- NOTE | 2020-02-19 16:40 | NUR ---
CALLED DR. THOMPSON TO INFORM HIM THAT NO PRESCRIPTIONS WERE IN PATIENT CHART OR SENT TO HOME PHARMACY AT THIS TIME.
--- NOTE | 2020-02-19 16:59 | NUR ---
TEXT GYPSY TONG TO CALL IN DISCHARGE PRESCRIPTIONS TO PATIENT HOME PHARMACY [facility] .
== END 2020-02-19 15:50 | disposition home or self-care (01) | DRG 133 ==
LOC: MED 09:14 → MTU 13:28
PROVIDERS: ADMIT Internal Medicine; ATTEND Internal Medicine
PROC: 3E1M39Z Irrigation of Peritoneal Cavity using Dialysate, Percutaneous Approach (ICD-10-PCS; principal; 2020-02-16)
DX: J96.01 Acute respiratory failure with hypoxia (principal); J18.9 Pneumonia, unspecified organism; J45.901 Unspecified asthma with (acute) exacerbation; E11.22 Type 2 diabetes mellitus with diabetic chronic kidney disease; I25.10 Atherosclerotic heart disease of native coronary artery without angina pectoris; E78.5 Hyperlipidemia, unspecified; D62 Acute posthemorrhagic anemia; E44.0 Moderate protein-calorie malnutrition; D64.9 Anemia, unspecified; I12.0 Hypertensive chronic kidney disease with stage 5 chronic kidney disease or end stage renal disease; Z20.828 Contact with and (suspected) exposure to other viral communicable diseases; N18.6 End stage renal disease; Z99.2 Dependence on renal dialysis; Z79.899 Other long term (current) drug therapy; Z95.5 Presence of coronary angioplasty implant and graft; Z68.26 Body mass index [BMI] 26.0-26.9, adult
CPT/HCPCS: 36415; 71045; 80048; 80053; 81003; 82550; 82728; 82948; 83540; 83605; 83615; 83735; 83880; 84100; 84484; 85025; 85379; 85384; 85610; 85730; 86140; 86870; 86886; 86900; 86901; 86920; 87040; 87081; 87086; 87420; 87804; 94640; 99285; J0456; J0696; J0885; J1200; J1815; J2060; J2405; J7030; J7060; J7613; J7644; Q0092; U0003-CS